=== PATIENT | male | born 1945 | race Caucasian/White ===

== ENCOUNTER → 2016-05-07 | Outpatient (CLI) | payer OTHER | LOC: MMPC 10:00 | PROVIDERS: ATTEND Podiatrist Foot & Ankle Surgery | DX: M79.672 Pain in left foot (principal); L84 Corns and callosities; B35.1 Tinea unguium; L60.0 Ingrowing nail; E11.40 Type 2 diabetes mellitus with diabetic neuropathy, unspecified; L60.3 Nail dystrophy | CPT/HCPCS: 11055 ×2; 11720 ×2; G0463 ==

== ENCOUNTER → 2016-05-18 | Outpatient (CLI) | payer OTHER | LOC: MMPC 11:11 | DX: N20.0 Calculus of kidney (principal); E11.40 Type 2 diabetes mellitus with diabetic neuropathy, unspecified; E29.1 Testicular hypofunction; G47.33 Obstructive sleep apnea (adult) (pediatric); E78.5 Hyperlipidemia, unspecified; E66.3 Overweight | CPT/HCPCS: 99213; G0463 ==

== ENCOUNTER → 2016-05-25 | Outpatient (CLI) | payer OTHER ==
[2016-05-25 13:44] LABS: BASOPHILS # (AUTO) 0.04 10*3/UL; BASOPHILS % (AUTO) 0.4 % (0-1); EOSINOPHILS % (AUTO) 6.2 % (0-8); HEMATOCRIT 36.6 % (42.0-52.0); IMM GRAN % (AUTO) 0.3 % (0-5); IMM GRAN# (AUTO) 0.03 10*3/UL; LYMPHOCYTES # (AUTO) 2.53 10*3/uL; LYMPHOCYTES % (AUTO) 24.2 % (10-50); MEAN CORPUSCULAR HEMOGLOBIN 30.2 PG (27-31); MEAN CORPUSCULAR HGB CONC 32.8 g/dL (33-37); MEAN PLATELET VOLUME 8.5 FL (7.4-12.2); MONOCYTES # (AUTO) 0.86 10*3/UL (0.3-0.8); MONOCYTES % (AUTO) 8.2 % (5-15); NEUTROPHILS # (AUTO) 6.36 10*3/UL; NEUTROPHILS % (AUTO) 60.7 % (50-80); PLATELET MORPHOLOGY COMMENT NORMAL MORPHOLOGY (NORM); RDW COEFFICIENT OF VARIATION 15.8 % (11.5-14.5); RED BLOOD COUNT 3.98 10^6/uL (4.70-6.10); WHITE BLOOD COUNT 10.47 10^3/uL (4.8-10.8)
[2016-05-25 13:54] LABS: BLOOD UREA NITROGEN 39 mg/dL (7-22); BUN/CREATININE RATIO 10.83 (6-20); CHLORIDE 115 meq/L (98-112); CREATININE 3.6 mg/dL (0.70-1.50); GLUCOSE 134 mg/dL (78-110); POTASSIUM 4.1 meq/L (3.8-5.2); SODIUM 146 meq/L (135-145)
== END ==
LOC: LAB 13:27
DX: E11.9 Type 2 diabetes mellitus without complications (principal); I10 Essential (primary) hypertension; N20.0 Calculus of kidney
CPT/HCPCS: 36415; 80048; 85025

== ENCOUNTER → 2016-06-04 | Outpatient (CLI) | payer OTHER | LOC: MMPC 10:00 | PROVIDERS: ATTEND Podiatrist Foot & Ankle Surgery | DX: L84 Corns and callosities (principal); B35.1 Tinea unguium; E11.40 Type 2 diabetes mellitus with diabetic neuropathy, unspecified; I73.9 Peripheral vascular disease, unspecified; L60.0 Ingrowing nail; L60.3 Nail dystrophy | CPT/HCPCS: 11055 ×2; 11720 ×2; G0463 ==

== ENCOUNTER → 2016-06-30 | Outpatient (CLI) | payer OTHER ==
[2016-06-30 16:26] LABS: BLOOD UREA NITROGEN 34 mg/dL (7-22); CALCIUM 9.4 mg/dL (8.7-10.7); CHLORIDE 114 meq/L (98-112); CREATININE 3.3 mg/dL (0.70-1.50); GLUCOSE 88 mg/dL (78-110); MAGNESIUM 2.2 mg/dL (1.6-2.4); PHOSPHORUS 4.7 mg/dl (2.4-4.3); POTASSIUM 4.7 meq/L (3.8-5.2); SODIUM 146 meq/L (135-145); URIC ACID 6.1 mg/dl (3.8-8.5)
== END ==
LOC: MOB LAB 14:30
DX: E11.9 Type 2 diabetes mellitus without complications (principal); N20.0 Calculus of kidney; I10 Essential (primary) hypertension
CPT/HCPCS: 36415; 80048; 83735; 84100; 84550

== ENCOUNTER → 2016-07-02 | Outpatient (CLI) | payer OTHER | LOC: MMPC 10:00 | PROVIDERS: ATTEND Podiatrist Foot & Ankle Surgery | DX: M79.672 Pain in left foot (principal); L84 Corns and callosities; B35.1 Tinea unguium; L60.0 Ingrowing nail; E11.40 Type 2 diabetes mellitus with diabetic neuropathy, unspecified; G62.9 Polyneuropathy, unspecified | CPT/HCPCS: 11055 ×2; 99212; G0463 ==

== ENCOUNTER → 2016-07-30 | Outpatient (CLI) | payer OTHER | LOC: MMPC 10:00 | PROVIDERS: ATTEND Podiatrist Foot & Ankle Surgery | DX: M79.672 Pain in left foot (principal); L84 Corns and callosities; L60.0 Ingrowing nail; B35.1 Tinea unguium; E11.42 Type 2 diabetes mellitus with diabetic polyneuropathy; G62.9 Polyneuropathy, unspecified | CPT/HCPCS: 11055 ×2; G0463 ==

== ENCOUNTER 2016-08-10 07:15 | Emergency (ER) | payer OTHER ==
[2016-08-10] MEDS ORDERED: Sodium Chloride 0.9% 1,000 ML PRIMARY IV ONE (07:50)
[2016-08-10] MEDS ORDERED: NORMAL SALINE 10 ML SYRINGE FLUSH IVP PRN (07:50)
[2016-08-10 08:06] VITALS: RESP 18; TEMP 96.5
[2016-08-10 08:14] LABS: BASOPHILS # (AUTO) 0.03 10*3/UL; BASOPHILS % (AUTO) 0.2 % (0-1); EOSINOPHILS # (AUTO) 0.25 10*3/UL; EOSINOPHILS % (AUTO) 1.6 % (0-8); HEMATOCRIT 43.6 % (42.0-52.0); HEMOGLOBIN 14.3 g/dL (14.0-18.0); LYMPHOCYTES # (AUTO) 0.75 10*3/uL; MEAN CORPUSCULAR HEMOGLOBIN 30.2 PG (27-31); MEAN CORPUSCULAR HGB CONC 32.8 g/dL (33-37); MEAN PLATELET VOLUME 9.8 FL (7.4-12.2); MONOCYTES # (AUTO) 0.76 10*3/UL (0.3-0.8); MONOCYTES % (AUTO) 4.8 % (5-15); NEUTROPHILS # (AUTO) 13.96 10*3/UL; NEUTROPHILS % (AUTO) 88.4 % (50-80); PLATELET MORPHOLOGY COMMENT NORMAL MORPHOLOGY (NORM); RBC MORPHOLOGY COMMENT NORMAL MORPHOLOGY (NORM); RED BLOOD COUNT 4.74 10^6/uL (4.70-6.10); WBC MORPHOLOGY COMMENT NORMAL MORPHOLOGY (NORM)
[2016-08-10] MEDS: HYDROmorphone 2 MG/1 ML IVP ONE ×2 (08:43→10:00)
[2016-08-10 08:49] LABS: BLOOD UREA NITROGEN 45 mg/dL (7-22); BUN/CREATININE RATIO 10.46 (6-20); CALCIUM 8.8 mg/dL (8.7-10.7); LIPASE 74 IU/L (23-300); SERUM ALBUMIN 3.8 g/dL (3.5-4.8)
--- NOTE | 2016-08-10 09:03 | PDOC ---
Transfer of Care - Care Accepted Time Care Transferred: 08:35 Report from Transferring Physician Received: Yes MDM / ED Course: Patient had been evaluated, but had been drawn and sent to the lab for studies transfer of care occurred while awaiting CT scan and results. T of abdomen and pelvis without contrast were ordered. Review of his CT scan shows a proximal 5 mm stone in the right ureter resulting in extravasation of urine and hydronephrosis with a proximal 2 mm stone noted. Creatinine is noted to be elevated over 4. I was able to contact Dr. To the on-call urologist. He is recommending decompression with stent placement and stone retrieval to preserve his one functioning kidney. He has agreed to accept the patient for direct admission at [facility]. Patient is being transferred by private vehicle to [facility]. Home Medications: Home Medications Aspirin [Aspir 81] 1 tab PO DAILY #30 05/06/11 Hydrocodone Bit/Acetaminophen [Roe 5-325 Tablet] 1 tab PO Q4-6H tab 08/31/13 Multivitamin [Daily Vitamin] 1 tab PO DAILY tab 08/31/13 Blood-Glucose Meter [Accu-Chek Raquel Plus] 1 each MC DAILY #1 each 11/28/13 Blood Sugar Diagnostic [Accu-Chek Raquel] 1 strip IN BID PRN #100 strip 12/14/13 Urea 2 gm TP QD #85 tube 06/28/14 Allopurinol 0.5 tab PO QD #45 tab 07/12/14 Metoprolol Tartrate 1.5 tab PO BID #270 tab 07/12/14 Testosterone Cypionate 200 mg IM ONCE #3 vial 07/12/14 Zolpidem Tartrate 1 tab PO HS PRN #90 tab 08/06/14 Glipizide 1 tab PO QD #90 tab 09/25/15 Losartan Potassium 1 tab PO BID #180 tab 01/28/16 Pregabalin [Lyrica] 1 cap PO TID #90 cap 04/02/16 Tamsulosin HCl [Flomax] 0.4 mg PO DAILY #10 cap 04/08/16 Tramadol HCl 1 - 2 tab PO Q4-6H #160 tab 05/14/16 Simvastatin 1 tab PO QHS #90 tab 05/18/16 Nifedipine [Procardia Xl] 1 tab PO BID #180 tab 06/30/16 Sitagliptin Phosphate [Januvia] 0.5 tab PO DAILY #90 tab 02/28/17 Allergies/Adverse Reactions: Allergies latex [Latex] Allergy (Severe, Verified 08/10/16 07:29) RASH PT STATES NO CHANGE IN STATUS . [id number] adhesive [Adhesive] Allergy (Intermediate, Verified 08/10/16 07:29) RASH Vital Signs Reviewed: Yes Nurse's Notes Reviewed & Considered: Yes - Pending Patient Care Items Pending Patient Care Items: POSITIVE: CT / MRI Results - Expected Patient Outcome Tentative Impression of Patient: Nephrolithiasis with hydronephrosis. Expected Disposition: POSITIVE: Home - Re-Evaluation of Patient Re-Examine Time:: 10:16 Disposition of Patient: POSITIVE: Transferred Counseled: POSITIVE: Patient, Family, RE: Lab Results, RE: Radiology Results, RE : DX, RE: Need for F/U Pending Test Results Documented: Yes Clinical Impression Documented: Yes (nephrolithiasis with hydronephrosis) - Results Reviewed Lab Results Reviewed by Me: Yes Lab Results: Laboratory Results 08/10/16 08/10/16 Range/Units 07:54 09:55 WBC 15.79 H (4.8-10.8) 10^3/uL RBC 4.74 (4.70-6.10) 10^6/uL Hgb 14.3 (14.0-18.0) g/dL Hct 43.6 (42.0-52.0) % MCV 92.0 H (80-90) FL MCH 30.2 (27-31) PG MCHC 32.8 L (33-37) g/dL RDW Std Deviation 49.7 (39-50) fL RDW Coeff of Steffi 15.1 H (11.5-14.5) % Plt Count 320 (140-350) 10*3/uL MPV 9.8 (7.4-12.2) FL Immature Gran % (Auto) 0.3 (0-5) % Neut % (Auto) 88.4 H (50-80) % Lymph % (Auto) 4.7 L (10-50) % [place] % (Auto) 4.8 L (5-15) % Eos % (Auto) 1.6 (0-8) % Baso % (Auto) 0.2 (0-1) % Immature Gran # (Auto) 0.04 10*3/UL Neut # (Auto) 13.96 10*3/UL Lymph # (Auto) 0.75 10*3/uL [place] # (Auto) 0.76 (0.3-0.8) 10*3/UL Eos # (Auto) 0.25 10*3/UL Baso # (Auto) 0.03 10*3/UL WBC Morphology Comment Normal morphology (NORM) Plt Morphology Comment Normal morphology (NORM) RBC Morph Comment Normal morphology (NORM) Sodium 143 (135-145) meq/L Potassium 4.6 (3.8-5.2) meq/L Chloride 113 H (98-112) meq/L Carbon Dioxide 16 L (23-33) meq/L Anion Gap 14 (5-20) BUN 45 H (7-22) mg/dL Creatinine 4.3 H (0.70-1.50) mg/dL Estimated GFR Family [employer] BUN/Creatinine Ratio 10.46 (6-20) Glucose 214 H (78-110) mg/dL Calculated Osmolality 313.0 H (267-292) mOsm/kg Calcium 8.8 (8.7-10.7) mg/dL Total Bilirubin 0.5 (0.3-1.2) mg/dL AST 17 L (21-57) IU/L ALT 28 (21-72) IU/L Alkaline Phosphatase 94 (38-126) IU/L Total Protein 7.1 (6.1-8.0) g/dL Albumin 3.8 (3.5-4.8) g/dL Globulin 3.2 (2.50-4.10) g/dL Albumin/Globulin Ratio 1.10 L (1.3-2.0) mg/g Amylase 72 (30-110) U/L Lipase 74 (23-300) IU/L Ur Collection Type Clean catch urine Urine Color Yellow Urine Clarity Clear (CLEAR) Urine pH 5.5 (5.0-8.5) Ur Specific [place] 1.015 (1.005-1.030) Urine Protein >300 (NEG) mg/dl Urine Glucose (UA) 250 (NEG) mg/dL Urine Ketones Negative (NEG) Urine Occult Blood Moderate H (NEG) Urine Nitrate Negative (NEG) Urine Bilirubin Negative (NEG) Urine Urobilinogen 0.2 (0.2) EU/dL Ur Leukocyte Esterase Negative (NEG) Urine RBC 10-12 (NONE) /hpf Urine WBC 0 (NONE) Ur Squamous Epith Cells None (NONE) Ur Renal Epithelial Cell None (NONE) Urine Crystals None Urine Bacteria None (NONE) Urine Casts None (NONE) Urine Mucus None (NONE) Urine Trichomonas None (NONE) Urine Yeast None (NONE) Ur Culture Indicated? Culture not set - Consult Recommendations:: Transfer to [facility] via POV. Direct admission with Dr. To for stent placement and decompression of right hydronephrosis. Patient Care Time - Estimated PCT Patient Care Time (In Minutes): 30 Vital Signs - Recent Vital Signs Vital Signs: Vital Signs (Last 8 hours) Temp Pulse Resp BP Pulse Ox 08/10/16 07:15 96.5 F L 99 18 192/120 95 - VS Reviewed Vital Signs Reviewed: Yes Discharge Clinical Impression: Abdominal pain, Nephrolithiasis Discharge Disposition: Transferred to Tertiary Care Facility Condition: Stable Patient Instructions Given at Discharge: Kidney Stones (ED) Follow Up With: MICKIE ADKINS [Primary Care Provider] - Date Decision to Transfer to Another Facility: 08/10/16 Time Decision to Transfer to Another Facility: 11:01
--- NOTE | 2016-08-10 09:16 | DI ---
CT ABDOMEN SCAN WITHOUT IV CONTRAST, 08/10/2016 7:53 AM : Clinical History: Right flank pain and right lower abdominal pain. Previous Exam: 04/17/2016. Scans are performed from the lower lung bases through the liver and kidneys without IV contrast. Sagi ttal and coronal reformatted images are generated. The lung bases are clear. There are calcified granulomas in the lateral segment of the right middle l obe and in the left lower lobe that have not changed. The liver is normal. The gallbladder is grossly normal. There is no abnormality of the spleen, pancreas, and adrenal glands. The left kidney is smal l and has a 35mm upper pole cyst and a 20 mm lower pole cyst that comprises almost the entire volume of that kidney. There is a small nonobstructing 2-3 mm calculus in a lower pole calyx. The right kidn ey shows perinephric extravasation of urine with mild hydronephrosis secondary to a 5-6 mm calculus i n the proximal ureter probably at the junction between the extrarenal pelvis in the proximal ureter. Within this dilated renal pelvis is a smaller 2-3 mm calculus located proximal to the larger obstruct ing calculus. There are no right renal calculi present. There is a 50 mm as well as a 16 mm cyst in t he upper pole of the right kidney. Both ureters are otherwise normal. There are no abnormal retrocrur al or periaortic nodes. No ascites is present. READIN. Right moderate hydronephrosis with extravasation of urine secondary to a 5-6 mm calculus in the p roximal right ureter. There is a smaller 2-3 mm calculus proximal to this larger calculus. 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 There is a small 2-3 mm nonobstructing lower p ole calculus. 2. The remainder of the examination is normal. CT PELVIS SCAN WITHOUT IV CONTRAST, 08/10/2016 7:53 AM : Clinical History: See above. Previous Exam: 04/17/2016. Scans are performed from the inferior margin of the liver and kidneys to the symphysis pubis without IV contrast. There is no free fluid collection and there is no adenopathy. The appendix is normal. The small bowel , terminal ileum, and ileocecal valve are normal. The colon is also normal. There is a small umbilica l hernia through which only mesenteric fat has herniated. The prostate is enlarged. READING: Normal CT pelvis scan. There is prostatic hypertrophy.
--- NOTE | 2016-08-10 09:18 | PDOC ---
Abdomen/Flank HPI - General Chief Complaint: Abdomen Pain Stated Complaint: ABD PAIN/BURNING TO R SIDE Date Seen by Provider: 08/10/16 Time Seen by Provider: 07:30 Source: POSITIVE: Patient, Spouse Exam Limitations: POSITIVE: No limitations Nurse's Notes Reviewed & Considered: Yes - History of Present Illness Initial Comments: The patient is a 70-year-old male. He states that for the past month he has had some discomfort in the right flank area. He states that last night his right flank pain became severe and he had some associated pain radiating into the right lower abdomen. He states he has a history of ureterolithiasis and had a stone removed from the left ureter on April 25. History of diabetes mellitus. 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 He states he has not had an appendectomy or cholecystectomy. No associated vomiting but some nausea. No diarrhea, melena, hematochezia, hematemesis, dysuria or hematuria. No known fevers. Body Location Affected: REPORTS: Abdomen, Back (Right flank) Timing: REPORTS: Gradual, Getting Worse Duration: >1 week (Some discomfort for the past month; abruptly worse today.) Severity: Moderate Quality: REPORTS: "Pain" Abdominal Pain Onset Location: REPORTS: RLQ, Flank (Right) Abdominal Pain Radiation: REPORTS: No radiation Context: REPORTS: None Modifying Factors: improves with: Nothing Associated Symptoms: REPORTS: Heartburn, Nausea Similar Symptoms Previously: Yes ( "with kidney stones") Recent Care Received: REPORTS: Denies Any Prior Injuries Related to Current Complaint?: Yes - Patient Home Medications Home Medications: Home Medications Aspirin [Aspir 81] 1 tab PO DAILY #30 05/06/11 Hydrocodone Bit/Acetaminophen [Almo 5-325 Tablet] 1 tab PO Q4-6H tab 08/31/13 Multivitamin [Daily Vitamin] 1 tab PO DAILY tab 08/31/13 Blood-Glucose Meter [Accu-Chek Raquel Plus] 1 each MC DAILY #1 each 11/28/13 Blood Sugar Diagnostic [Accu-Chek Raquel] 1 strip IN BID PRN #100 strip 12/14/13 Urea 2 gm TP QD #85 tube 06/28/14 Allopurinol 0.5 tab PO QD #45 tab 07/12/14 Metoprolol Tartrate 1.5 tab PO BID #270 tab 07/12/14 Testosterone Cypionate 200 mg IM ONCE #3 vial 07/12/14 Zolpidem Tartrate 1 tab PO HS PRN #90 tab 08/06/14 Glipizide 1 tab PO QD #90 tab 09/25/15 Losartan Potassium 1 tab PO BID #180 tab 01/28/16 Pregabalin [Lyrica] 1 cap PO TID #90 cap 04/02/16 Tamsulosin HCl [Flomax] 0.4 mg PO DAILY #10 cap 04/08/16 Tramadol HCl 1 - 2 tab PO Q4-6H #160 tab 05/14/16 Simvastatin 1 tab PO QHS #90 tab 05/18/16 Nifedipine [Procardia Xl] 1 tab PO BID #180 tab 06/30/16 Sitagliptin Phosphate [Januvia] 0.5 tab PO DAILY #90 tab 06/30/16 - Patient Allergies Allergies/Adverse Reactions: Allergies Allergy/AdvReac Type Severity Reaction Status Date / Time latex [Latex] Allergy Severe RASH Verified 08/10/16 07:29 adhesive [Adhesive] Allergy Intermediate RASH Verified 08/10/16 07:29 Past Medical History - heen HEENT History: Cataracts, Deaf, Dental Disorders, Chipped or Loose Teeth, Dentures/Partials, Other (please comment) Additional HEENT History: WEARS GLASSES Cardiovascular History: Hypertension, PVD, Hyperlipidemia Additional Cardiovasular History: Peripheral vascular disease. 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 Gastrointestinal History: GI Bleed Genitourinary History: Renal Disease, Kidney Stones Endocrine History: Type 2 Diabetes (oral) Additional Endocrine History: HgbA1c 8.6 on 07/14/12 Musculoskeletal History: Gout, Back Pain, Back Injury, Carpal Tunnel Prosthesis or Implant: No Neurological History: Migraines, Traumatic Brain Injury, Frequent Headaches, Other (please comment) Additional Neurological History: Diabetic peripaheral neuropathy--has burning pain in both legs chronically to below the knees. Blood Disorders: Denies History Psychiatric History: Denies History, PTSD History of Sexually Transmitted Diseases: No Male Reproductive History: Denies History Cancer History: Denies History In Past Year Been Physically Harmed or Verbally Threatened: No (PER PATIENT) History of MDRO: Unknown Type of MDRO: Unknown History of Other Communicable Diseases: No Tobacco Use: Never Smoker Alcohol Use: None Substance Use Type: None Previous Surgical History: Yes Type / Date of Surgery: LITHOTRIPSY x10, TONSILLECTOMY/ADENOIDECTOMY, CHOLECYSTECTOMY, CARPAL TUNNEL REPAIR Anesthesia Reactions: Yes ("have to use double and triple doses") Malignant Hyperthermia: No Family History of Malignant Hyperthermia: No Significant Family History: No pertinent family hx Past Medical History Reviewed: Reviewed - No Changes ROS - Limitations ROS Limitations: No Limitations Constitution: REPORTS: Denies Symptoms Cardiovascular: REPORTS: Denies Cardiac Symptoms Respiratory: REPORTS: Denies Resp Symptoms Neurological: REPORTS: Denies Neuro Symptoms Gastrointestinal: REPORTS: Abdominal Pain Endocrine: REPORTS: Denies Symptoms Musculoskeletal: REPORTS: Denies MS Symptoms Genitourinary: REPORTS: Flank Pain (Right) Eyes: REPORTS: Denies Symptoms ENT: REPORTS: Denies Symptoms Skin: REPORTS: Denies Skin Symptoms Lympathic: REPORTS: Denies Lympathic Symptoms Immunologic: POSITIVE: Denies Symptoms Psychiatric: POSITIVE: Denies Psych Symptoms Abdominal/Flank Pain PE - General Appearance General Appearance: POSITIVE: Alert, Cooperative, No Acute Distress, No Evidence of Trauma - HEENT HEENT: POSITIVE: Head Inspection Nml, Eyes Inspection Nml, Ears Inspection Nml, Nose Inspection Nml, Oral/Dental Inspect. Nml, Pharynx Inspect. Nml, PERRL, EOMI - Neck Neck: POSITIVE: Normal Inspection, No Apparent Injury - Respiratory Respiratory: POSITIVE: No Respiratory Distress, Breath Sounds Normal, Chest Non- Tender - Cardiovascular Cardiovascular: POSITIVE: Regular Rate and Rhythm, Heart Sounds Normal, Equal Pulses, Strong Pulses Peripheral Pulses: Radial (R): 2+, Radial (L): 2+ - Chest Chest: POSITIVE: Non Tender - Abdomen Abdomen: Soft: (All Quadrants), Normal Bowel Sounds: (All Quadrants), Denies Tenderness: (LLQ), (LUQ), (RUQ), No Splenomegaly: (All Quadrants), No Hepatomegaly: (All Quadrants), No Guarding: (All Quadrants), No Rebound: (All Quadrants), No Palpable Pulse: (All Quadrants), No Palpabale Mass: (All Quadrants), No Distention: (All Quadrants), No Rigidity: (All Quadrants), Tenderness Noted: (RLQ) (and right flank, mild) - Back Back: POSITIVE: CVA Tenderness (R) - Skin Skin: POSITIVE: Intact, Normal For Race, Warm, Dry, No Rash - Extremities Extremity: Non-Tender: (All Extremities), Normal ROM: (All Extremities), Normal Inspection: (All Extremities) - Neurological Neurological: POSITIVE: Oriented X3, production internship Normal As Tested, Motor Normal, Sensation Normal, 5, 6 - Psychological Psychiatric: POSITIVE: Affect Appropriate, Mood Appropriate Images - Complete Complete: 1 - Area of discomfort/pain Abdomen Progress - Results Reviewed by me Xrays/CTs/US Reviewed by me: No Discussed with Radiologist: No Radiology Findings: CT scan abdomen and pelvis without contrast ordered; results pending Lab Results Reviewed: No (blood and urine tests ordered; results pending at this time) Lab Results:: Laboratory Results 08/10/16 Range/Units 07:54 WBC 15.79 H (4.8-10.8) 10^3/uL RBC 4.74 (4.70-6.10) 10^6/uL Hgb 14.3 (14.0-18.0) g/dL Hct 43.6 (42.0-52.0) % MCV 92.0 H (80-90) FL MCH 30.2 (27-31) PG MCHC 32.8 L (33-37) g/dL RDW Std Deviation 49.7 (39-50) fL RDW Coeff of Steffi 15.1 H (11.5-14.5) % Plt Count 320 (140-350) 10*3/uL MPV 9.8 (7.4-12.2) FL Immature Gran % (Auto) 0.3 (0-5) % Neut % (Auto) 88.4 H (50-80) % Lymph % (Auto) 4.7 L (10-50) % [place] % (Auto) 4.8 L (5-15) % Eos % (Auto) 1.6 (0-8) % Baso % (Auto) 0.2 (0-1) % Immature Gran # (Auto) 0.04 10*3/UL Neut # (Auto) 13.96 10*3/UL Lymph # (Auto) 0.75 10*3/uL [place] # (Auto) 0.76 (0.3-0.8) 10*3/UL Eos # (Auto) 0.25 10*3/UL Baso # (Auto) 0.03 10*3/UL WBC Morphology Comment Normal morphology (NORM) Plt Morphology Comment Normal morphology (NORM) RBC Morph Comment Normal morphology (NORM) Sodium 143 (135-145) meq/L Potassium 4.6 (3.8-5.2) meq/L Chloride 113 H (98-112) meq/L Carbon Dioxide 16 L (23-33) meq/L Anion Gap 14 (5-20) BUN 45 H (7-22) mg/dL Creatinine 4.3 H (0.70-1.50) mg/dL Estimated GFR [employer] BUN/Creatinine Ratio 10.46 (6-20) Glucose 214 H (78-110) mg/dL Calculated Osmolality 313.0 H (267-292) mOsm/kg Calcium 8.8 (8.7-10.7) mg/dL Total Bilirubin 0.5 (0.3-1.2) mg/dL AST 17 L (21-57) IU/L ALT 28 (21-72) IU/L Alkaline Phosphatase 94 (38-126) IU/L Total Protein 7.1 (6.1-8.0) g/dL Albumin 3.8 (3.5-4.8) g/dL Globulin 3.2 (2.50-4.10) g/dL Albumin/Globulin Ratio 1.10 L (1.3-2.0) mg/g Amylase 72 (30-110) U/L Lipase 74 (23-300) IU/L - Patient's Progress Pain Medication Addressed: POSITIVE: Yes (Dilaudid 2 mg IV ordered) Re-examine Time: 08:35 Re-Examine Comment: Radiologic and laboratory work results pending at this time. Care of patient turned over to Dr. Moses, who comes on duty at 0830 a.m. Status: POSITIVE: Unchanged Patient Care Time - Estimated PCT Patient Care Time (In Minutes): 30 Vital Signs - Recent Vital Signs Vital Signs: Vital Signs (Last 8 hours) Temp Pulse Resp BP Pulse Ox 08/10/16 07:15 96.5 F L 99 18 192/120 95 - VS Reviewed Vital Signs Reviewed: Yes Discharge Clinical Impression: Abdominal pain Condition: Stable Care Transferred To: care transferred to Dr. Moses, [id number]
[2016-08-10 09:26] LABS: BILIRUBIN,URINE NEGATIVE (NEG); COLOR,URINE YELLOW; GLUCOSE, URINE (UA) 250 mg/dL (NEG); NITRATE,URINE NEGATIVE (NEG); OCCULT BLOOD,URINE MODERATE (NEG); PH,URINE 5.5 (5.0-8.5); PROTEIN,URINE >300 mg/dl (NEG); UROBILINOGEN,URINE 0.2 EU/dL (0.2)
[2016-08-10 09:55] LABS: CLARITY,URINE CLEAR (CLEAR)
[2016-08-10 09:56] LABS: URINE SAMPLE TYPE CLEAN CATCH URINE; WBC,URINE 0
[2016-08-10] MEDS ORDERED: CIPROFLOXACIN 500 MG TABLET PO ONE (10:05)
[2016-08-10] MEDS ORDERED: TAMSULOSIN 0.4 MG CAPSULE PO ONE (10:05)
[2016-08-10] MEDS ORDERED: CloNIDine Tab 0.1 MG TABLET PO ONE (11:07)
== END 2016-08-10 11:29 | disposition home or self-care (01) ==
LOC: ER 07:15
DX: N13.2 Hydronephrosis with renal and ureteral calculous obstruction (principal); N40.0 Benign prostatic hyperplasia without lower urinary tract symptoms; R10.31 Right lower quadrant pain; E11.40 Type 2 diabetes mellitus with diabetic neuropathy, unspecified
CPT/HCPCS: 74176; 80053; 81001; 81003; 82150; 83690; 85025; 96361; 96374; 96376; 99283; J1170; J7030

== ENCOUNTER → 2016-08-26 | Outpatient (CLI) | payer OTHER ==
[2016-08-26 15:43] LABS: BASOPHILS # (AUTO) 0.05 10*3/UL; BASOPHILS % (AUTO) 0.4 % (0-1); EOSINOPHILS # (AUTO) 0.39 10*3/UL; EOSINOPHILS % (AUTO) 2.8 % (0-8); HEMATOCRIT 39.8 % (42.0-52.0); LYMPHOCYTES # (AUTO) 1.36 10*3/uL; MEAN CORPUSCULAR HEMOGLOBIN 29.8 PG (27-31); MEAN CORPUSCULAR HGB CONC 32.7 g/dL (33-37); MEAN CORPUSCULAR VOLUME 91.3 FL (80-90); MEAN PLATELET VOLUME 9.4 FL (7.4-12.2); MONOCYTES # (AUTO) 0.61 10*3/UL (0.3-0.8); MONOCYTES % (AUTO) 4.4 % (5-15); NEUTROPHILS # (AUTO) 11.34 10*3/UL; NEUTROPHILS % (AUTO) 82.2 % (50-80); RED BLOOD COUNT 4.36 10^6/uL (4.70-6.10)
[2016-08-26 15:45] LABS: PLATELET MORPHOLOGY COMMENT NORMAL MORPHOLOGY (NORM); RBC MORPHOLOGY COMMENT NORMAL MORPHOLOGY (NORM); WBC MORPHOLOGY COMMENT NORMAL MORPHOLOGY (NORM)
[2016-08-26 15:51] LABS: BLOOD UREA NITROGEN 46 mg/dL (7-22); BUN/CREATININE RATIO 12.43 (6-20); CALCIUM 9.4 mg/dL (8.7-10.7)
[2016-08-26 15:57] LABS: HEMOGLOBIN A1C 6.76 % (4.2-6.0)
== END ==
LOC: MOB LAB 14:14
DX: E11.9 Type 2 diabetes mellitus without complications (principal); D72.829 Elevated white blood cell count, unspecified; N28.9 Disorder of kidney and ureter, unspecified; N20.0 Calculus of kidney
CPT/HCPCS: 36415; 80048; 83036; 85025

== ENCOUNTER → 2016-09-03 | Outpatient (CLI) | payer OTHER | LOC: MMPC 10:00 | PROVIDERS: ATTEND Podiatrist Foot & Ankle Surgery | DX: M79.672 Pain in left foot (principal); L84 Corns and callosities; E11.40 Type 2 diabetes mellitus with diabetic neuropathy, unspecified; G62.9 Polyneuropathy, unspecified; B35.1 Tinea unguium; L60.0 Ingrowing nail | CPT/HCPCS: 11055 ×2; G0463 ==

== ENCOUNTER → 2016-09-11 | Outpatient (CLI) | payer OTHER ==
[2016-09-11 08:14] LABS: BLOOD UREA NITROGEN 27 mg/dL (7-22); CALCIUM 9.4 mg/dL (8.7-10.7)
== END ==
LOC: LAB 07:17
DX: N18.3 Chronic kidney disease, stage 3 (moderate) (principal)
CPT/HCPCS: 36415; 80048

== ENCOUNTER → 2016-09-24 | Outpatient (CLI) | payer OTHER | LOC: MMPC 11:11 | DX: M79.672 Pain in left foot (principal); L84 Corns and callosities; G62.9 Polyneuropathy, unspecified; B35.1 Tinea unguium; L60.0 Ingrowing nail; L60.3 Nail dystrophy; E11.40 Type 2 diabetes mellitus with diabetic neuropathy, unspecified; I67.9 Cerebrovascular disease, unspecified; N28.9 Disorder of kidney and ureter, unspecified; E66.09 Other obesity due to excess calories; I10 Essential (primary) hypertension; N18.3 Chronic kidney disease, stage 3 (moderate); N20.0 Calculus of kidney; E11.9 Type 2 diabetes mellitus without complications; G47.33 Obstructive sleep apnea (adult) (pediatric); F32.9 Major depressive disorder, single episode, unspecified; E78.5 Hyperlipidemia, unspecified; E29.1 Testicular hypofunction | CPT/HCPCS: 11055 ×2; 11720 ×2; 99213; G0463 ×2 ==

== ENCOUNTER 2016-10-02 08:08 | Emergency (ER) | payer OTHER ==
[2016-10-02] MEDS ORDERED: DIPH,PERTUSS,TET(ADACEL) VAC/PF 0.5 ML (Tdap) IM ONE (08:23)
--- NOTE | 2016-10-02 08:27 | PDOC ---
Foot / Ankle Injury - General Chief Complaint: General Medical Stated Complaint: wants his feet checked and needs tetanus shot Date Seen by Provider: 10/02/16 Time Seen by Provider: 08:17 Source: POSITIVE: Patient Exam Limitations: POSITIVE: No limitations Nurse's Notes Reviewed & Considered: Yes - History of Present Illness Initial Comments: The patient is a 70-year-old male who presents to the emergency department with a puncture wound to the left foot. He is a diabetic and has diabetic neuropathy. He states that he got up this morning to go to the bathroom and accidentally stepped on a push pin. He was wearing socks at the time. The push pin stuck in the bottom of his foot. He removed the pin right away. He presented to the emergency department with primary concern about infection and he states he does not remember when his last tetanus shot would've been. He denies any other associated injuries or complaints. Have you received a tetanus shot in the past 10 years?: Yes - Patient Allergies Allergies/Adverse Reactions: Allergies Allergy/AdvReac Type Severity Reaction Status Date / Time latex [Latex] Allergy Severe RASH Unverified 09/24/16 13:33 adhesive [Adhesive] Allergy Intermediate RASH Unverified 09/24/16 13:33 - Patient Home Medications Home Medications: Home Medications Aspirin [Aspir 81] 1 tab PO DAILY #30 05/06/11 Hydrocodone Bit/Acetaminophen [[place] 5-325 Tablet] 1 tab PO Q4-6H tab 08/31/13 Multivitamin [Daily Vitamin] 1 tab PO DAILY tab 08/31/13 Blood-Glucose Meter [Accu-Chek Raquel Plus] 1 each MC DAILY #1 each 11/28/13 Blood Sugar Diagnostic [Accu-Chek Raquel] 1 strip IN BID PRN #100 strip 12/14/13 Urea 2 gm TP QD #85 tube 06/28/14 Allopurinol 0.5 tab PO QD #45 tab 07/12/14 Testosterone Cypionate 200 mg IM ONCE #3 vial 07/12/14 Zolpidem Tartrate 1 tab PO HS PRN #90 tab 08/06/14 Glipizide 1 tab PO QD #90 tab 09/25/15 Tamsulosin HCl [Flomax] 0.4 mg PO DAILY #10 cap 04/08/16 Simvastatin 1 tab PO QHS #90 tab 01/16/17 Nifedipine [Procardia Xl] 1 tab PO BID #180 tab 06/30/16 Sitagliptin Phosphate [Januvia] 0.5 tab PO DAILY #90 tab 06/30/16 Clopidogrel Bisulfate [Plavix] 1 tab PO QD #90 tab 09/08/16 Metoprolol Tartrate 1.5 tab PO BID #270 tab 09/08/16 Potassium Citrate [Potassium Citrate Er] 1 tab PO BID #60 tab 09/24/16 Tramadol HCl 1 - 2 tab PO Q4-6H #160 tab 09/24/16 Cephalexin [Keflex] 500 mg PO Q8H #15 cap 10/02/16 Past Medical History - heen HEENT History: Cataracts, Deaf, Dental Disorders, Chipped or Loose Teeth, Dentures/Partials, Other (please comment) Additional HEENT History: WEARS GLASSES Cardiovascular History: Hypertension, PVD, Hyperlipidemia Additional Cardiovasular History: Peripheral vascular disease. 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 Gastrointestinal History: GI Bleed Genitourinary History: Renal Disease, Kidney Stones Endocrine History: Type 2 Diabetes (oral) Additional Endocrine History: HgbA1c 8.6 on 07/14/12 Musculoskeletal History: Gout, Back Pain, Back Injury, Carpal Tunnel Prosthesis or Implant: No Neurological History: Migraines, Traumatic Brain Injury, Frequent Headaches, Other (please comment) Additional Neurological History: Diabetic peripaheral neuropathy--has burning pain in both legs chronically to below the knees. Blood Disorders: Denies History Psychiatric History: Denies History, PTSD History of Sexually Transmitted Diseases: No Cancer History: Denies History History of MDRO: Unknown History of Other Communicable Diseases: No Alcohol Use: None Substance Use Type: None Previous Surgical History: Yes Type / Date of Surgery: LITHOTRIPSY x10, TONSILLECTOMY/ADENOIDECTOMY, CHOLECYSTECTOMY, CARPAL TUNNEL REPAIR Anesthesia Reactions: Yes ("have to use double and triple doses") Malignant Hyperthermia: No Significant Family History: No pertinent family hx Past Medical History Reviewed: Reviewed - No Changes ROS - Limitations ROS Limitations: No Limitations (Review of systems otherwise noncontributory) Foot / Ankle Exam - General Appearance General Appearance: POSITIVE: Alert, Cooperative, No Acute Distress - Extremities Foot: POSITIVE: Other (examination of the left foot reveals a small puncture on the sole of his foot just proximal to his toes on the lateral aspect of his foot , there is no active bleeding, no foreign body, no soft tissue swelling or tenderness) Foot / Ankle Progress - Patient's Progress MDM / ED Course: The patient's tetanus was updated with Tdap. Wound care instructions were discussed and he was advised to do warm soaks over the next couple of days 2-3 times a day. In addition he was started on Keflex 500 mg 3 times a day for 5 days. He is advised return to the emergency room if he develops any sign of wound infection, any worsening or change in symptoms. He is advised follow-up with primary care as needed. - Consult Counseled: POSITIVE: Patient, RE: DX, RE: Need for F/U Patient Care Time - Estimated PCT Patient Care Time (In Minutes): 10 Vital Signs - VS Reviewed Vital Signs Reviewed: Yes (written documentation reviewed) Discharge Clinical Impression: Puncture wound of foot Discharge Disposition: Discharged to Home Condition: Stable Prescriptions / Orders: Cephalexin [Keflex] 500 mg PO Q8H #15 cap Patient Instructions Given at Discharge: Puncture Wound (ED) Additional Instructions: Recommend warm soaks to the left foot 2-3 times a day for the next couple of days. Monitor closely for any sign of infection (increased pain or swelling, drainage from the wound, redness around the wound, fever). Your tetanus was updated today here in the emergency room. He also her prescribed Keflex 500 mg 3 times a day for 5 days for infection prevention. Return to the emergency room if any sign of infection, worsening or change in symptoms. Follow-up with primary care as needed. Follow Up With: MICKIE ADKINS [Primary Care Provider] -
[2016-10-02 08:43] VITALS: RESP 22; TEMP 97.4
== END 2016-10-02 08:48 | disposition home or self-care (01) ==
LOC: ER 08:08
DX: S91.332A Puncture wound without foreign body, left foot, initial encounter (principal); E11.40 Type 2 diabetes mellitus with diabetic neuropathy, unspecified; W22.8XXA Striking against or struck by other objects, initial encounter
CPT/HCPCS: 90471; 99282

== ENCOUNTER → 2016-10-21 | Outpatient (CLI) | payer OTHER ==
[2016-10-21 10:30] LABS: BLOOD UREA NITROGEN 39 mg/dL (7-22); BUN/CREATININE RATIO 11.47 (6-20); CALCIUM 8.6 mg/dL (8.7-10.7)
== END ==
LOC: LAB 08:39
DX: N28.9 Disorder of kidney and ureter, unspecified (principal)
CPT/HCPCS: 36415; 80048

== ENCOUNTER → 2016-10-22 | Outpatient (CLI) | payer OTHER | LOC: MMPC 10:00 | PROVIDERS: ATTEND Podiatrist Foot & Ankle Surgery | DX: M79.672 Pain in left foot (principal); L84 Corns and callosities; L60.3 Nail dystrophy; L60.0 Ingrowing nail; B35.1 Tinea unguium; E11.40 Type 2 diabetes mellitus with diabetic neuropathy, unspecified | CPT/HCPCS: 11055; 11720 ==

== ENCOUNTER 2016-10-29 20:05 | Emergency (ER) | payer OTHER ==
[2016-10-29 23:40] VITALS: RESP 18; TEMP 98.1
--- NOTE | 2016-10-30 06:18 | PDOC ---
Hand / Wrist Injury HPI - General Chief Complaint: Upper Extremity Problem/Injury Stated Complaint: RIGHT HAND INJURY Date Seen by Provider: 10/29/16 Time Seen by Provider: 20:10 Source: POSITIVE: Patient Exam Limitations: POSITIVE: No limitations Nurse's Notes Reviewed & Considered: Yes - History of Present Illness Initial Comments: The patient is a 70-year-old male. He states that approximately 3 days [employer] he accidentally struck the dorsum of his right and against a wall. He subsequently developed some ecchymosis to the dorsum of his right hand, especially over the dorsum of the right third finger and, less so, the right first and second finger. No paresthesia or sensory or motor symptoms. No lacerations or abrasions. Range of motion has been intact. Have you received a tetanus shot in the past 10 years?: Yes Body Location Affected: REPORTS: Upper Extremity (R) (Hand) Timing: REPORTS: Abrupt Duration: >24 hours (3 days [employer]EN[employer]) Severity: Mild Location at Time of Onset: REPORTS: Home Context: REPORTS: Blow Location of Injury: REPORTS: Right, Hand, 1st Finger, 2nd Finger, 3rd Finger Quality: REPORTS: Tenderness Modifying Factors: REPORTS: Other (Direct palpation) Associated Symptoms: DENIES: Arm (R), Arm (L), Tingling Distally, Numbness Distally, Loss of Feeling, Loss of Power, Other Any Prior Injuries Related to Current Complaint?: No - Patient Home Medications Home Medications: Home Medications Aspirin [Aspir 81] 1 tab PO DAILY #30 05/06/11 Hydrocodone Bit/Acetaminophen [[place] 5-325 Tablet] 1 tab PO Q4-6H tab 08/31/13 Multivitamin [Daily Vitamin] 1 tab PO DAILY tab 08/31/13 Blood-Glucose Meter [Accu-Chek Raquel Plus] 1 each MC DAILY #1 each 11/28/13 Blood Sugar Diagnostic [Accu-Chek Raquel] 1 strip IN BID PRN #100 strip 12/14/13 Urea 2 gm TP QD #85 tube 06/28/14 Allopurinol 0.5 tab PO QD #45 tab 07/12/14 Zolpidem Tartrate 1 tab PO HS PRN #90 tab 08/06/14 Glipizide 1 tab PO QD #90 tab 09/25/15 Nifedipine [Procardia Xl] 1 tab PO BID #180 tab 06/30/16 Sitagliptin Phosphate [Januvia] 0.5 tab PO DAILY #90 tab 06/30/16 Clopidogrel Bisulfate [Plavix] 1 tab PO QD #90 tab 09/08/16 Metoprolol Tartrate 1.5 tab PO BID #270 tab 09/08/16 Potassium Citrate [Potassium Citrate Er] 1 tab PO BID #60 tab 09/24/16 Tramadol HCl 1 - 2 tab PO Q4-6H #160 tab 09/24/16 Simvastatin 1 tab PO QHS #90 tab 10/23/16 - Patient Allergies Allergies/Adverse Reactions: Allergies Allergy/AdvReac Type Severity Reaction Status Date / Time latex [Latex] Allergy Severe RASH Unverified 10/22/16 15:55 adhesive [Adhesive] Allergy Intermediate RASH Unverified 10/22/16 15:55 Past Medical History - heen HEENT History: Cataracts, Deaf, Dental Disorders, Chipped or Loose Teeth, Dentures/Partials, Other (please comment) Additional HEENT History: WEARS GLASSES Cardiovascular History: Hypertension, PVD, Hyperlipidemia Additional Cardiovasular History: Peripheral vascular disease. 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 Gastrointestinal History: GI Bleed Genitourinary History: Renal Disease, Kidney Stones Endocrine History: Type 2 Diabetes (oral) Additional Endocrine History: HgbA1c 8.6 on 07/14/12 Musculoskeletal History: Gout, Back Pain, Back Injury, Carpal Tunnel Prosthesis or Implant: No Neurological History: Migraines, Traumatic Brain Injury, Frequent Headaches, Other (please comment) Additional Neurological History: Diabetic peripaheral neuropathy--has burning pain in both legs chronically to below the knees. Blood Disorders: Denies History Additional Blood Disorders History: MONITORING PATIENT FOR BLOOD CLOTS. RECENTLY PLACED ON PLAVIX AND A HEART MONITOR Psychiatric History: Denies History, PTSD History of Sexually Transmitted Diseases: No Cancer History: Denies History In Past Year Been Physically Harmed or Verbally Threatened: No History of MDRO: Unknown History of Other Communicable Diseases: No Tobacco Use: Never Smoker Alcohol Use: None Substance Use Type: None Previous Surgical History: Yes Type / Date of Surgery: LITHOTRIPSY x10, TONSILLECTOMY/ADENOIDECTOMY, CHOLECYSTECTOMY, CARPAL TUNNEL REPAIR Anesthesia Reactions: Yes ("have to use double and triple doses") Malignant Hyperthermia: No Significant Family History: No pertinent family hx Past Medical History Reviewed: Reviewed - No Changes ROS - Limitations ROS Limitations: No Limitations Constitution: REPORTS: Denies Symptoms Cardiovascular: REPORTS: Denies Cardiac Symptoms Respiratory: REPORTS: Denies Resp Symptoms Neurological: REPORTS: Denies Neuro Symptoms Gastrointestinal: REPORTS: Denies GI Symptoms Endocrine: REPORTS: Denies Symptoms Musculoskeletal: REPORTS: Recent Injury (As above) Genitourinary: REPORTS: Denies Symptoms Eyes: REPORTS: Denies Symptoms ENT: REPORTS: Denies Symptoms Skin: REPORTS: Other (Contusion dorsum of right hand as above; see diagram) Lympathic: REPORTS: Denies Lympathic Symptoms Immunologic: POSITIVE: Denies Symptoms Psychiatric: POSITIVE: Denies Psych Symptoms Hand / Wrist Injury Exam - General Appearance General Appearance: POSITIVE: Alert, Cooperative, No Acute Distress, No Evidence of Trauma - Extremities Upper Extremity: POSITIVE: No Evidence of FB, Normal ROM, Soft Tissue Tenderness (mild), Bony Tenderness (mild), Ecchymosis (see diagram), Uninjured Above Wrist, See Diagram. NEGATIVE: Swelling, Deformity, Complete Nail Injury, Partial Avulsion, Limited ROM, Limited ROM d/t Pain, Ltd. ROM d/t Funct. Def., Snuff Box Position Tender, Axial Thumb Load Pain Neurovascular / Tendon: POSITIVE: Sensation Normal, Motor Normal, No Vascular Compromise, Tendon Function Normal Skin: POSITIVE: See Diagram (contusions) - Neck / Back Neck/Back: POSITIVE: Normal Inspection, Non-Tender, Painless ROM - Respiratory / CVS Respiratory / CVS: POSITIVE: Chest Non Tender, No Ecchymosis, Breath Sounds Normal, No Respiratory Distress, Heart Sounds Normal, Regular Rate/Rhythm Peripheral Pulses: Radial (R): 2+, Radial (L): 2+ Images - Hands Hand: 1 - Contusion 2 - Contusion 3 - Contusion Hand / Wrist Injury Progress - Results Reviewed by me Xrays/CTs/US Reviewed by me: Yes Discussed with Radiologist: No Radiology Findings: X-ray right hand normal - Patient's Progress Pain Medication Addressed: POSITIVE: Yes (recommended Tylenol) School/Work Release Addressed: POSITIVE: Not Applicable Re-Examine Time: 21:00 Status: POSITIVE: Unchanged - Consult Counseled: POSITIVE: Patient, RE: Radiology Results, RE: DX, RE: Need for F/U Patient Care Time - Estimated PCT Patient Care Time (In Minutes): 18 Vital Signs - VS Reviewed Vital Signs Reviewed: Yes Discharge Clinical Impression: Contusion of hand, right Discharge Disposition: Discharged to Home Condition: Good Patient Instructions Given at Discharge: Contusion in Adults (ED) Additional Instructions: X-ray of the right hand is normal; no fractures or dislocations. Cool compresses. Elevate hand. Return as necessary. Follow Up With: MICKIE ADKINS [Primary Care Provider] - (Return as necessary.)
--- NOTE | 2016-10-30 18:27 | DI ---
XR HAND MIN 3VW,10/29/2016 8:17 PM: Clinical History: Trauma Previous Exam: None at this facility. Findings: 3 views of the right hand are obtained, and demonstrate mild diffuse osteopenia. There are dystrophic calcifications noted in the region of the triangular fibrocartilage complex whic h appear to be nonacute. There is diffuse osteopenia. There is no significant diastases. The surrounding soft tissues are unremarkable. Impression: Diffuse osteopenia and degenerative changes of the right wrist. Vague calcified densities in the region of the triangular fibrocartilage complex may represent an old injury. Correlate clinically.
== END 2016-10-29 21:15 | disposition home or self-care (01) ==
LOC: ER 20:05
DX: S60.221A Contusion of right hand, initial encounter (principal); E11.40 Type 2 diabetes mellitus with diabetic neuropathy, unspecified; W22.8XXA Striking against or struck by other objects, initial encounter
CPT/HCPCS: 73130; 99282

== ENCOUNTER → 2016-11-19 | Outpatient (CLI) | payer OTHER | LOC: MMPC 10:00 | PROVIDERS: ATTEND Podiatrist Foot & Ankle Surgery | DX: M79.672 Pain in left foot (principal); L84 Corns and callosities; B35.1 Tinea unguium; L60.0 Ingrowing nail; E11.40 Type 2 diabetes mellitus with diabetic neuropathy, unspecified | CPT/HCPCS: 11055 ×2; G0463 ==

== ENCOUNTER → 2016-12-18 | Outpatient (CLI) | payer OTHER ==
--- NOTE | 2016-12-18 15:46 | DI ---
History: Nephrolithiasis Comparison: August 10, 2016 Findings: There is greater the 1 cm anterolisthesis L5 on S1 Lung bases are clear Unenhanced liver is unremarkable Gallbladder is unremarkable in appearance. Spleen is unremarkable No focal pancreatic lesions. No pancreatic ductal dilatation. Mild aortic atherosclerosis. Large right renal cortical cyst unchanged as compared with August 10, 2016. Pigtail stent extends from right renal pelvis into the urinary bladder. There is punctate calcificati on which I believe is associated with one of the right renal cyst. There are no calculi within the pe lvic calyceal system. I can see no calculi within the ureter. Left kidney is atrophic and unchanged. There is punctate calcific density in the left renal cortex. T here are no obstructing calculi. Left ureter is normal in course and caliber Prostate gland is prominent in impression upon the adjacent urinary bladder. No intrinsic bladder les ions are demonstrated. Fairly large amount of fat is herniated into both right and left inguinal canal. There is no intestinal obstruction. There is no focal inflammation to indicate appendicitis or divert iculitis. There are scattered colonic diverticula, most numerous in the sigmoid colon. There is no fo jeannie inflammation. The appendix is normal. There is no free air or free fluid. Impression: Right ureteral stent extends from the right renal pelvis into the urinary bladder. There is no hydron ephrosis. I can see no renal or ureteral calculi. Atrophy of the left kidney unchanged as compared CT scan of 2017 Greater than 1 cm anterolisthesis of L5 on S1. Bilateral L5 pars interarticularis defects Prostatic hypertrophy with impression upon the adjacent urinary bladder Fairly large amount of fat herniated in the and now Diverticulosis. No indication of diverticulitis
== END ==
LOC: CT 14:41
DX: N20.0 Calculus of kidney (principal)
CPT/HCPCS: 74176

== ENCOUNTER 2018-06-21 05:53 | Observation (INO) ==
[2018-06-21] MEDS ORDERED: Sodium Chloride 0.9% 1,000 ML PRIMARY IV ONE (06:20)
[2018-06-21] MEDS ORDERED: DEXTROSE 50%-WATER SYRINGE 50 ML SYRINGE IVP ONE ×7 (06:22→18:18)
[2018-06-21 06:25] LABS: BASOPHILS # (AUTO) 0.02 10*3/UL; BASOPHILS % (AUTO) 0.2 % (0-1); EOSINOPHILS # (AUTO) 0.05 10*3/UL; EOSINOPHILS % (AUTO) 0.6 % (0-8); Hematocrit [HCT] 37.6 % (42.0-52.0); Hemoglobin [HGB] 11.9 g/dL (14.0-18.0); LYMPHOCYTES # (AUTO) 0.85 10*3/uL; MEAN CORPUSCULAR HEMOGLOBIN 29.5 PG (27-31); MEAN CORPUSCULAR HGB CONC 31.6 g/dL (33-37); MEAN CORPUSCULAR VOLUME 93.3 FL (80-90); MEAN PLATELET VOLUME 9.2 FL (7.4-12.2); MONOCYTES # (AUTO) 0.39 10*3/UL (0.3-0.8); MONOCYTES % (AUTO) 4.4 % (5-15); NEUTROPHILS # (AUTO) 7.51 10*3/UL; NEUTROPHILS % (AUTO) 85.1 % (50-80); RED BLOOD COUNT 4.03 10^6/uL (4.70-6.10)
[2018-06-21 06:36] LABS: BLOOD UREA NITROGEN 49 mg/dL (7-22); BUN/CREATININE RATIO 12.56 (6-20); SERUM ALBUMIN 4.1 g/dL (3.5-4.8)
[2018-06-21 06:47] LABS: PLATELET MORPHOLOGY COMMENT NORMAL MORPHOLOGY (NORM); RBC MORPHOLOGY COMMENT NORMAL MORPHOLOGY (NORM); WBC MORPHOLOGY COMMENT NORMAL MORPHOLOGY (NORM)
--- NOTE | 2018-06-21 06:48 | EKG ---
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
[2018-06-21 07:45] LABS: BILIRUBIN,URINE NEGATIVE (NEG); CLARITY,URINE CLEAR (CLEAR); COLOR,URINE YELLOW (Y); GLUCOSE, URINE (UA) NEGATIVE (NEG); OCCULT BLOOD,URINE Trace-lysed (NEG); PH,URINE 5.5 (5.0-8.5); PROTEIN,URINE >300 mg/dl (NEG); UROBILINOGEN,URINE 0.2 EU/dL (0.2)
[2018-06-21 07:54] LABS: URINE SAMPLE TYPE CLEAN CATCH URINE
[2018-06-21 07:55] LABS: SQUAMOUS EPITHELIAL CELL,UR RARE
--- NOTE | 2018-06-21 08:22 | DI ---
XR CXR 2VW PA/LAT 06/21/2018 7:35 AM [place] [facility] [place] Comparison: 04/19/2018. Findings: PA and lateral views of the chest demonstrate normal aeration without focal consolidation. There is no pneumothorax or pleural effusion. The cardiomediastinal silhouette is at the upper limits of normal with mildly increased pulmonary vasculature. The tortuous thoracic aorta is again noted. T he osseous structures are not significantly changed. Impression: 1. There is no dense consolidation or pleural effusion. 2. Cardiomegaly with mildly increased pulmonary vasculature.
--- NOTE | 2018-06-21 09:01 | PDOC ---
HPI - History of Present Illness Date of Service: 06/21/18 Time of Service: 10:10 Chief Complaint: Low blood sugar, unsteadiness, confusion History of Present Illness: This is a 72 years old male with medical history significant for history of diabetes, hypertension, diabetic nephropathy, hypercholesterolemia and history of previous stroke in the past who was brought to the hospital by his because of low blood sugar. He said his blood sugar started to go down yesterday. In the afternoon his blood sugar was down to 39. At work last night he felt wobbly and at work they called the EMT they came and they checked his blood sugar apparently they gave him some sugars and he ate. Then this morning he felt his blood sugar also to be low and he was brought to the hospital by his . In the ER he was found to have a low blood sugar down to the 20s and 40s he was given D50 and he also ate. Other blood tests showed chronic renal failure which she has in addition troponin was 0.1 this was discussed with the cardiology who suggested a nuclear stress test at one point. To me the patient denied history of chest pain, shortness of breath. When The patient came into the floor the said he has some slurring of his speech however he is not aware of it. He Was denying symptoms. We did check his blood sugar and was 40. We gave him D50 and that's seem to improve his symptoms. He said he can't tell if his blood sugar is his low, the only thing that he had yesterday he said that he was somewhat wobbly and thought he is going to have a fall but he didn't. Past Medical History Medical History: 1. History of diabetes mellitus. 2. History of diabetic nephropathy. 3. History of hypoxemia suppose to be on oxygen at night. 4. History of diabetic neuropathy. 5. History of hypertension. 6. History of hyperlipidemia. 7. History of stroke before he said he recovered from it completely. 8. History of nonfunctioning kidney according to him. 9. History of nephrolithiasis before Surgical History: 1. History of hernia repair. 2. History of carpal tunnel surgery Family History: Reviewed an Not Pertinent Past Social History: Patient have a small, doesn't drink, no drugs, lives with his . Still works. Tobacco Use: Never Smoker In the Past 12 Months, Have Used or Abuse Any of the Following Substance: None Medication / Allergies Home Medications: Home Medications Medication Instructions Recorded Confirmed Type aspirin 81 mg tablet,delayed 81 mg PO QDAY #30 tab 08/11/17 06/21/18 History release blood sugar diagnostic strips 1 strip MISCELLANEOUS BID #100 08/11/17 06/21/18 History strip blood-glucose meter 1 ea MISCELLANEOUS ONCE #1 ea 08/11/17 06/21/18 History multivitamin tablet 1 tab PO QDAY tab 08/11/17 06/21/18 History allopurinol 300 mg tablet 150 mg PO QDAY #45 tab 08/12/17 06/21/18 Rx clopidogrel 75 mg tablet 37.5 mg PO QDAY #45 tab 08/12/17 06/21/18 Rx nifedipine ER 90 mg 90 mg PO BID #60 tab 08/12/17 06/21/18 Rx tablet,extended release 24 hr simvastatin 40 mg tablet 40 mg PO QHS #30 tab 08/12/17 06/21/18 Rx RX: syringe with needle 3 mL 23 x 0 unit .ROUTE .MEDSUPPLY 09/10/17 06/21/18 History 1" RX: Amlodipine Besylate [Norvasc] 2.5 mg PO BID 02/25/18 06/21/18 History potassium citrate ER 5 mEq (540 5 meq PO BID #60 tab 04/19/18 06/21/18 Rx mg) tablet,extended release tramadol 50 mg tablet 50 mg PO Q6H PRN #150 tab 04/21/18 06/21/18 Rx torsemide 20 mg tablet 20 mg PO BID #60 tab 05/04/18 06/21/18 Rx sulfamethoxazole 800 1 tab PO BID #28 tab 05/31/18 06/21/18 Rx mg-trimethoprim 160 mg tablet glipizide ER 10 mg tablet, 10 mg PO DAILY #90 tab 06/10/18 06/21/18 Rx extended release 24 hr losartan 50 mg tablet 25 mg PO QDAY #30 tab 06/10/18 06/21/18 Rx metoprolol tartrate 50 mg tablet 50 mg PO BID #60 tab 06/10/18 Rx Allergies/Adverse Reactions: Allergies Allergy/AdvReac Type Severity Reaction Status Date / Time latex [Latex] Allergy Severe RASH Verified 06/21/18 09:18 adhesive [Adhesive] Allergy Intermediate RASH Verified 06/21/18 09:18 Review of Systems - Review of Systems All Systems: Reviewed & No Additional Complaints Except as Stated Exam - Vitals Vital Signs: Vital Signs Temperature 96.2 F Pulse Rate [Pulse Oximeter] 86 Respiratory Rate 20 Blood Pressure [Left Arm] 178/97 Pulse Ox 94 Oxygen Delivery Method Room Air Height 5 ft 10 in Weight 228 lb 9.6 oz - General General Appearance: No Acute Distress, Cooperative - Head Head Exam: Normal Inspection - Eye Eye Exam: POSITIVE: Normal Appearance - ENT ENT Exam: POSITIVE: Normal Exam - Neck Neck Exam: Normal Inspection - Respiratory Respiratory Exam: POSITIVE: Clear to Auscultation - Bilaterally - Cardiovascular Cardiovascular Exam: POSITIVE: RRR - GI/Abdominal GI/Abdominal Exam: POSITIVE: Normal Bowel Sounds, Non Tender, Non Distended, Soft, No Organomegaly - Rectal Rectal Exam: POSITIVE: Deferred - External Exam: POSITIVE: Deferred Exam: POSITIVE: Deferred - Extremities Extremities Exam: POSITIVE: Normal Inspection - Back Back Exam: POSITIVE: Normal Inspection - Neurological Neurological Exam: POSITIVE: Alert, Oriented x 3, CN II-XII Intact, No Facial Droop, Speech Intact / Clear - Psychiatric Psychiatric Exam: POSITIVE: Normal Affect Results - Labs CBC and BMP: 06/21/18 06:00 06/21/18 08:31 - EKG Data -: EKG Interpreted by Me Rate: Normal EKG Shows Normal: Sinus Rhythm - EKG Data EKG Interpretation: Other (EKG showed right bundle branch block seem to be new compared to the EKG that he had 2016.) Assessment and Plan - Patient Problems (1) Hypoglycemia Current Visit: Yes Status: Acute Comment: He said there is no change in his diet and he did not miss a meal, the only thing is he was put recently on Bactrim and he still taking it only one left according to him. I did check there is a possibility of interaction with the glipizide and may cause hypoglycemia. I think we'll stop the Bactrim. We'll stop the glipizide for now. Will recheck his blood sugar often. His blood sugar when he came into the floor was 40 with gave him D50. I'll put him now on D5 10. Will check his A1c. Code(s): E16.2 - Hypoglycemia, unspecified (2) Troponin level elevated Current Visit: Yes Status: Acute Comment: He is denying chest pain, denying shortness of breath. He is denying history of congestive heart failure although Dr. Bauer mention congestive heart failure. I'll order an echo for him. I did tell him we'll do a stress test but will do it once his blood sugar is stabilized. We'll recheck his tro ponin. I think the elevation is probably secondary to his renal failure. He may have a history of congestive heart failure though an the elevation secondary to CHF. Code(s): R74.8 - Abnormal levels of other serum enzymes (3) Diabetic nephropathy Current Visit: No Status: Chronic Comment: We'll recheck his chemistry tomorrow. (4) Type 2 diabetes with nephropathy Current Visit: No Status: Chronic Comment: We'll hold the glipizide. Will check his blood sugar often because of the hypoglycemia. Code(s): E11.21 - Type 2 diabetes mellitus with diabetic nephropathy (5) Hyperlipidemia Current Visit: No Status: Chronic Comment: Same medication (6) Essential hypertension Current Visit: No Status: Chronic Comment: Continue the same medication. Apparently he ran out on the nifedipine so continue with the medication that he was taking.
--- NOTE | 2018-06-21 09:13 | PDOC ---
General Adult HPI - General Chief Complaint: Diabetic Complaint Stated Complaint: HYPOGLYCEMIA Date Seen by Provider: 06/21/18 Time Seen by Provider: 06:05 Source: POSITIVE: Patient, Spouse, EMS Exam Limitations: POSITIVE: No limitations Nurse's Notes Reviewed & Considered: Yes EMS Report Reviewed & Considered: Verbal - History of Present Illness Initial Comment: The patient is a 72-year-old male who was brought by his to the emergency room. His chief complaint is "my blood sugars have been going". Patient states that he has a history of type II diabetes for which he takes glipizide ER, 10 mg daily. He states he was taken Januvia but he discontinued this medication because "I blood sugars keep getting low ". Patient states that for the last couple of days his blood sugars have been "down to 39". He states his blood sugars "never get above 160. He states his blood sugars are usually "120-110". Patient states that when his blood sugars get slowly gets very fatigued and dizzy. He denies any head chest or abdominal pain. 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 Patient has a history of having had a stroke last year. He states he has complained to his primary care provider, Dr. Isrrael richards, of some vague chest pains for the last 3-4 weeks. He states that Dr. Bauer has arranged for cardiology consultation, which has not yet been accomplished. Patient has a history of chronic renal failure. He in May his BUN was 44 his creatinine was 3.4. He denies any head chest or abdominal pain. No focal neurologic symptoms. On patient's arrival to the emergency room his blood glucose was 40. He is alert and oriented. Have you received a tetanus shot in the past 10 years?: Yes Body Location Affected: REPORTS: Other ("Low blood sugars ") Timing: REPORTS: Intermittent, Getting Worse Duration: >24 hours Quality: REPORTS: Other (Patient denies any pain anywhere) Context: REPORTS: None Modifying Factors: improves with: Nothing Similar Symptoms Previously: Yes Recent Care Received: REPORTS: Recently Seen, Treated by MD (And clinic by professional services specialist) Any Prior Injuries Related to Current Complaint?: No - Patient Home Medications Home Medications: Home Medications aspirin 81 mg tablet,delayed release 81 mg PO QDAY #30 tab 08/11/17 blood sugar diagnostic strips 1 strip MISCELLANEOUS BID #100 strip 08/11/17 blood-glucose meter 1 ea MISCELLANEOUS ONCE #1 ea 08/11/17 multivitamin tablet 1 tab PO QDAY tab 08/11/17 allopurinol 300 mg tablet 150 mg PO QDAY #45 tab 08/12/17 clopidogrel 75 mg tablet 37.5 mg PO QDAY #45 tab 08/12/17 nifedipine ER 90 mg tablet,extended release 24 hr 90 mg PO BID #60 tab 08/12/17 simvastatin 40 mg tablet 40 mg PO QHS #30 tab 08/12/17 syringe with needle 3 mL 23 x 1" 0 unit .ROUTE .MEDSUPPLY 09/10/17 Amlodipine Besylate [Norvasc] 2.5 mg PO BID 02/25/18 potassium citrate ER 5 mEq (540 mg) tablet,extended release 5 meq PO BID #60 tab 04/19/18 tramadol 50 mg tablet 50 mg PO Q6H PRN #150 tab 04/21/18 torsemide 20 mg tablet 20 mg PO BID #60 tab 05/04/18 sulfamethoxazole 800 mg-trimethoprim 160 mg tablet 1 tab PO BID #28 tab 05/31/18 glipizide ER 10 mg tablet, extended release 24 hr 10 mg PO DAILY #90 tab 9 losartan 50 mg tablet 25 mg PO QDAY #30 tab 06/10/18 metoprolol tartrate 50 mg tablet 50 mg PO BID #60 tab 06/10/18 - Patient Allergies Allergies/Adverse Reactions: Allergies Allergy/AdvReac Type Severity Reaction Status Date / Time latex [Latex] Allergy Severe RASH Verified 06/21/18 05:54 adhesive [Adhesive] Allergy Intermediate RASH Verified 06/21/18 05:54 Past Medical History - heen HEENT History: Cataracts, Hard of Hearing, Chipped or Loose Teeth Additional HEENT History: WEARS GLASSES Cardiovascular History: Hypertension, PVD, Hyperlipidemia Additional Cardiovasular History: Peripheral vascular disease. 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 Gastrointestinal History: Denies History Genitourinary History: Renal Disease, Kidney Stones Additional Genitourinary History: Only has one kidney Endocrine History: Type 2 Diabetes (oral) Additional Endocrine History: HgbA1c 8.6 on 07/14/12 Musculoskeletal History: Gout Prosthesis or Implant: No Neurological History: CVA, Frequent Headaches, Other (please comment) Additional Neurological History: Diabetic peripheral neuropathy Blood Disorders: Denies History Additional Blood Disorders History: MONITORING PATIENT FOR BLOOD CLOTS. RECENTLY PLACED ON PLAVIX AND A HEART MONITOR Psychiatric History: Denies History History of Sexually Transmitted Diseases: No Male Reproductive History: Denies History Cancer History: Denies History In Past Year Been Physically Harmed or Verbally Threatened: No History of MDRO: Unknown Other Type of MDRO: Hx of MRSA History of Other Communicable Diseases: No Tobacco Use: Never Smoker Alcohol Use: None In the Past 12 Months, Have Used or Abuse Any Substance: None Previous Surgical History: Yes Type / Date of Surgery: LITHOTRIPSY x10, TONSILLECTOMY/ADENOIDECTOMY, CHOLECYSTECTOMY, CARPAL TUNNEL REPAIR/Bronchoscopy Anesthesia Reactions: No Malignant Hyperthermia: No Significant Family History: Cancer, Diabetes Past Medical History Reviewed: Reviewed - No Changes ROS - Limitations ROS Limitations: No Limitations Constitution: REPORTS: Denies Symptoms Cardiovascular: REPORTS: Denies Cardiac Symptoms Respiratory: REPORTS: Denies Resp Symptoms Neurological: REPORTS: Denies Neuro Symptoms Gastrointestinal: REPORTS: Denies GI Symptoms Endocrine: REPORTS: Low Glucose Musculoskeletal: REPORTS: Denies MS Symptoms Genitourinary: REPORTS: Denies Symptoms Eyes: REPORTS: Denies Symptoms ENT: REPORTS: Denies Symptoms Skin: REPORTS: Denies Skin Symptoms Lympathic: REPORTS: Denies Lympathic Symptoms Immunologic: POSITIVE: Denies Symptoms Psychiatric: POSITIVE: Denies Psych Symptoms General Adult Exam - General Appearance General Appearance: POSITIVE: Alert, Cooperative, No Acute Distress, No Evidence of Trauma - HEENT HEENT: POSITIVE: Head Inspection Nml, Eyes Inspection Nml, Ears Inspection Nml, Nose Inspection Nml, Oral/Dental Inspect. Nml, Pharynx Inspect. Nml, PERRL, EOMI - Pupils Pupil Size: 3 mm: Bilateral (PERRLA) - Neck Neck: POSITIVE: Normal Inspection, Thyroid Normal - Respiratory Respiratory: POSITIVE: No Respiratory Distress, Breath Sounds Normal, Chest Non- Tender - Cardiovascular Cardiovascular: POSITIVE: Regular Rate & Rhythm, No Murmur, No Gallop, PMI Normal Peripheral Pulses: Radial (R): 2+, Radial (L): 2+ - Abdomen Abdomen: Soft: (All Quadrants), Normal Bowel Sounds: (All Quadrants), Denies Tenderness: (All Quadrants), No Splenomegaly: (All Quadrants), No Hepatomegaly: (All Quadrants), No Guarding: (All Quadrants), No Rebound: (All Quadrants), No Palpable Pulse: (All Quadrants), No Palpabale Mass: (All Quadrants), No Distention: (All Quadrants), No Rigidity: (All Quadrants) - Back Back: POSITIVE: Normal Inspection. NEGATIVE: CVA Tenderness, Thoracic Tenderness, Lumbosacral Tenderness - Skin Skin: POSITIVE: Normal Color, Warm, Dry, No Rash - Extremities Extremity: Non-Tender: (All Extremities), Normal ROM: (All Extremities), Normal Inspection: (All Extremities) - Neurological / Psychological Neurological: POSITIVE: Affect Apporpriate, Oriented X3, service delivery consultant Normal As Tested, Motor Normal, Sensation Normal General Adult Progress - Results Reviewed by me Xrays/CTs/US Reviewed by me: Yes Discussed with Radiologist: Yes Radiology Findings: Chest x-ray shows cardiomegaly with mildly increased pul monary vasculature. Lab Results:: Laboratory Results 06/21/18 06/21/18 06/21/18 06:00 06:00 06:00 WBC 8.83 RBC 4.03 L Hgb 11.9 L Hct 37.6 L MCV 93.3 H MCH 29.5 MCHC 31.6 L RDW Std Deviation 53.4 H RDW Coeff of Steffi 16.1 H Plt Count 331 MPV 9.2 Immature Gran % (Auto) 0.1 Neut % (Auto) 85.1 H Lymph % (Auto) 9.6 L [place] % (Auto) 4.4 L Eos % (Auto) 0.6 Baso % (Auto) 0.2 Immature Gran # (Auto) 0.01 Neut # (Auto) 7.51 Lymph # (Auto) 0.85 [place] # (Auto) 0.39 Eos # (Auto) 0.05 Baso # (Auto) 0.02 WBC Morphology Comment Normal morphology Plt Morphology Comment Normal morphology RBC Morph Comment Normal morphology PT INR APTT Sodium 147 H Potassium 3.6 L Chloride 118 H Carbon Dioxide 14 L Anion Gap 15 BUN 49 H Creatinine 3.9 H Estimated GFR Steel Fixer BUN/Creatinine Ratio 12.56 Glucose 26 L* Calculated Osmolality 312.0 H Lactic Acid 1.0 Calcium 9.3 Total Bilirubin 0.2 L AST 101 H ALT 73 H Alkaline Phosphatase 85 Troponin I C-Reactive Protein 0.9 NT-Pro-B Natriuret Pep Total Protein 7.0 Albumin 4.1 Globulin 2.9 Albumin/Globulin Ratio 1.40 TSH Free T4 Ur Collection Type Urine Color Urine Clarity Urine pH Ur Specific [place] Urine Protein Urine Glucose (UA) Urine Ketones Urine Occult Blood Urine Nitrate Urine Bilirubin Urine Urobilinogen Ur Leukocyte Esterase Urine RBC Urine WBC Ur Squamous Epith Cells Ur Renal Epithelial Cell Urine Crystals Urine Bacteria Urine Casts Urine Mucus Urine Trichomonas Urine Yeast Ur Culture Indicated? 06/21/18 06/21/18 06/21/18 06:00 06:00 06:00 WBC RBC Hgb Hct MCV MCH MCHC RDW Std Deviation RDW Coeff of Steffi Plt Count MPV Immature Gran % (Auto) Neut % (Auto) Lymph % (Auto) [place] % (Auto) Eos % (Auto) Baso % (Auto) Immature Gran # (Auto) Neut # (Auto) Lymph # (Auto) [place] # (Auto) Eos # (Auto) Baso # (Auto) WBC Morphology Comment Plt Morphology Comment RBC Morph Comment PT 10.6 INR 1.04 APTT 31.3 Sodium Potassium Chloride Carbon Dioxide Anion Gap BUN Creatinine Estimated GFR BUN/Creatinine Ratio Glucose Calculated Osmolality Lactic Acid Calcium Total Bilirubin AST ALT Alkaline Phosphatase Troponin I 0.108 H C-Reactive Protein NT-Pro-B Natriuret Pep Total Protein Albumin Globulin Albumin/Globulin Ratio TSH 0.167 L Free T4 0.84 L Ur Collection Type Urine Color Urine Clarity Urine pH Ur Specific [place] Urine Protein Urine Glucose (UA) Urine Ketones Urine Occult Blood Urine Nitrate Urine Bilirubin Urine Urobilinogen Ur Leukocyte Esterase Urine RBC Urine WBC Ur Squamous Epith Cells Ur Renal Epithelial Cell Urine Crystals Urine Bacteria Urine Casts Urine Mucus Urine Trichomonas Urine Yeast Ur Culture Indicated? 06/21/18 06/21/18 06/21/18 06:00 07:05 07:30 WBC RBC Hgb Hct MCV MCH MCHC RDW Std Deviation RDW Coeff of Steffi Plt Count MPV Immature Gran % (Auto) Neut % (Auto) Lymph % (Auto) [place] % (Auto) Eos % (Auto) Baso % (Auto) Immature Gran # (Auto) Neut # (Auto) Lymph # (Auto) [place] # (Auto) Eos # (Auto) Baso # (Auto) WBC Morphology Comment Plt Morphology Comment RBC Morph Comment PT INR APTT Sodium Potassium Chloride Carbon Dioxide Anion Gap BUN Creatinine Estimated GFR BUN/Creatinine Ratio Glucose 40 L* Calculated Osmolality Lactic Acid Calcium Total Bilirubin AST ALT Alkaline Phosphatase Troponin I C-Reactive Protein NT-Pro-B Natriuret Pep 82179 H Total Protein Albumin Globulin Albumin/Globulin Ratio TSH Free T4 Ur Collection Type Clean catch urine Urine Color Yellow Urine Clarity Clear Urine pH 5.5 Ur Specific [place] 1.020 Urine Protein >300 A Urine Glucose (UA) Negative Urine Ketones Negative Urine Occult Blood Trace-lysed H Urine Nitrate Negative Urine Bilirubin Negative Urine Urobilinogen 0.2 Ur Leukocyte Esterase Negative Urine RBC None Urine WBC None Ur Squamous Epith Cells Rare Ur Renal Epithelial Cell None Urine Crystals None Urine Bacteria None Urine Casts None Urine Mucus None Urine Trichomonas None Urine Yeast None Ur Culture Indicated? Culture not set CBC and BMP: 06/21/18 06:00 06/21/18 07:05 EKG Interpreted/Reviewed By Me:: Yes (Q waves V1 through V3 with right bundle branch block. Q waves are new deve) EKG Interpretation:: POSITIVE: Normal Sinus Rhythm, Normal Rate, Abnormal EKG. NEGATIVE: Normal Intervals (Right bundle-branch block), Normal [place], Normal QRS (Q waves V1 through V3), Normal ST/T - Patient's Progress Pain Medication Addressed: POSITIVE: Not Applicable School/Work Release Addressed: POSITIVE: Not Applicable Re-Examine Time: 07:45 Re-Examine Comment: was made of the patient's elevated troponin. case was discussed with dr. richard, cardiology at [facility] [place]. patient has no chest pain at this time. dr. richard advises that his elevated troponin is most likely due to his renal failure. furthermore, in view of his renal failure patient is not a candidate for coronary angiography. .Dr Richard did not recommend heparinization. Recommended admission and a nuclear stress test. Patient was given a half a half of D50 and was fed breakfast. He feels much better on discharge. Status: POSITIVE: Improved, Re-Examined Antibiotics Given: No Quality Measure Initiative: CP/AMI: POSITIVE: EKG - Consult Consult (If Yes, Name of Consulting MD & Time Called): Yes (Dr. richard, [id number] Grady [phone]) Consulting MD will see pt:: POSITIVE: [facility] Admit Counseled: POSITIVE: Patient, Family, RE: Lab Results, RE: Radiology Results, RE: DX, RE: Need for F/U Patient Care Time - Estimated PCT Patient Care Time (In Minutes): 60 Vital Signs - Recent Vital Signs Vital Signs: Vital Signs (Last 8 hours) Temp Pulse Resp BP Pulse Ox 06/21/18 05:53 96.2 F L 86 20 178/97 94 - VS Reviewed Vital Signs Reviewed: Yes Discharge Clinical Impression: Hypoglycemia, Renal failure, chronic, Troponin level elevated CHF (congestive heart failure) Qualifiers: Heart failure type: unspecified Heart failure chronicity: acute on chronic Qualified Code(s): I50.9 - Heart failure, unspecified Discharge Disposition: Admit to Inpatient Condition: Good Date Decision to Admit to Inpatient: 06/21/18 Time Decision to Admit to Inpatient: 08:00
[2018-06-21] MEDS ORDERED: D10W 250 ML PRIMARY IV ONE ×2 (09:58→15:30)
[2018-06-21] MEDS ORDERED: LIDOCAINE W/ SODIUM BICARB 0.5 ML SYR SUBD PRN (10:03)
[2018-06-21] MEDS ORDERED: ONDANSETRON 4 MG/2 ML VIAL IVP PRN (10:03)
[2018-06-21] MEDS ORDERED: CALCIUM CARBONATE 500 MG (TUMS) CHEWABLE TABLET PO PRN (10:03)
[2018-06-21] MEDS ORDERED: ACETAMINOPHEN 325 MG TABLET PO PRN (10:03)
[2018-06-21] MEDS: Metoprolol TARTRATE Tab 50 MG TAB PO SCH ×2 (10:43→20:39)
[2018-06-21] MEDS: ALLOPURINOL 300 MG TABLET PO SCH (10:43)
[2018-06-21] MEDS: AmLODIPine Tab 2.5 MG TABLET PO SCH ×2 (11:25→20:38)
[2018-06-21] MEDS ORDERED: OCTREOTIDE ACETATE 50 MCG/1 ML VIAL OR AMP IVP SCH (18:15)
[2018-06-21 18:32] LABS: BLOOD UREA NITROGEN 46 mg/dL (7-22); BUN/CREATININE RATIO 12.77 (6-20)
[2018-06-21] MEDS: SODIUM CHLORIDE 0.9% IV SCH (19:04)
[2018-06-21] MEDS: OCTREOTIDE ACETATE IV SCH (19:04)
[2018-06-21] MEDS: Simvastatin Tab 40 MG TAB PO SCH (20:38)
[2018-06-21] MEDS: LOSARTAN 25 MG TABLET PO SCH (20:39)
[2018-06-21] MEDS: CLOPIDOGREL 75 MG TABLET PO SCH (20:39)
[2018-06-21] MEDS: ASPIRIN EC 81 MG TABLET PO SCH (20:39)
[2018-06-21] MEDS ORDERED: LOSARTAN 50 MG TABLET PO SCH (21:00)
[2018-06-21] MEDS: D10W 250 ML PRIMARY IV SCH (21:31)
[2018-06-22] MEDS: OCTREOTIDE ACETATE IV SCH ×2 (02:31→11:36)
[2018-06-22] MEDS: SODIUM CHLORIDE 0.9% IV SCH ×2 (02:31→11:36)
[2018-06-22] MEDS: D10W 250 ML PRIMARY IV SCH ×2 (02:32→07:29)
[2018-06-22 05:41] LABS: BLOOD UREA NITROGEN 45 mg/dL (7-22); BUN/CREATININE RATIO 13.23 (6-20)
--- NOTE | 2018-06-22 07:16 | PDOC(PROG) ---
Date of Service: 06/22/18 Time of Service: 07:15 Interval History: Subjective Patient continued to deny symptoms. He is denying any symptoms today, no shortness of breath, no chest pain. Still saying that he didn't have any symptoms yesterday when his blood sugar was low. Objective : Data - Labs CBC and BMP: 06/21/18 06:00 06/22/18 04:45 Objective : Exam - General General Appearance: No Acute Distress, Cooperative - Head Head Exam: Normal Inspection - Eye Eye Exam: Normal Appearance - ENT ENT Exam: Normal Exam - Neck Neck Exam: Normal Inspection - Respiratory Respiratory Exam: Clear to Auscultation - Bilaterally - Cardiovascular Cardiovascular Exam: RRR - GI/Abdominal GI/Abdominal Exam: Normal Bowel Sounds, Non Tender, Non Distended, Soft, No Organomegaly - Rectal Rectal Exam: Deferred - External Exam: Deferred Exam: Deferred - Extremities Extremities Exam: Normal Inspection - Back Back Exam: Normal Inspection - Neurological Neurological Exam: Alert, Oriented x 3, CN II-XII Intact, No Facial Droop, Speech Intact / Clear, Moves All Extremities Equally - Psychiatric Psychiatric Exam: Normal Affect Assessment and Plan - Patient Problems (1) Hypoglycemia Current Visit: Yes Status: Acute Comment: Seems to be resolving, will start cutting back on the IV fluids. will See whether we can stop it today. If we can will order the stress test for tomorrow. We'll give him 1 more dosage of the octreotide and then will DC it. Code(s): E16.2 - Hypoglycemia, unspecified (2) Troponin level elevated Current Visit: Yes Status: Acute Comment: As I said if his blood sugar remained stable off the IV fluid then will stress test for tomorrow. I did order an echocardiogram for him today. Code(s): R74.8 - Abnormal levels of other serum enzymes (3) Diabetic nephropathy Current Visit: No Status: Chronic Comment: Kidney function remains stable. (4) Type 2 diabetes with nephropathy Current Visit: No Status: Chronic Comment: We DC'd the glipizide will keep him off the glipizide will keep an eye on his blood sugar. Code(s): E11.21 - Type 2 diabetes mellitus with diabetic nephropathy (5) Hyperlipidemia Current Visit: No Status: Chronic Comment: Same med (6) Essential hypertension Current Visit: No Status: Chronic Comment: Same med
[2018-06-22] MEDS: Metoprolol TARTRATE Tab 50 MG TAB PO SCH ×2 (08:53→20:37)
[2018-06-22] MEDS: ASPIRIN EC 81 MG TABLET PO SCH (08:53)
[2018-06-22] MEDS: AmLODIPine Tab 2.5 MG TABLET PO SCH ×3 (08:53→20:27)
[2018-06-22] MEDS: ALLOPURINOL 300 MG TABLET PO SCH (08:53)
[2018-06-22] MEDS: LOSARTAN 25 MG TABLET PO SCH ×2 (19:12→20:27)
[2018-06-22] MEDS: Simvastatin Tab 40 MG TAB PO SCH (20:37)
[2018-06-22] MEDS: CLOPIDOGREL 75 MG TABLET PO SCH (20:38)
[2018-06-23 05:26] LABS: BLOOD UREA NITROGEN 47 mg/dL (7-22); BUN/CREATININE RATIO 11.75 (6-20)
--- NOTE | 2018-06-23 09:06 | STRESSTEST ---
[facility] [place] Interpretive Statements Patient had lexiscan stress test per protocol baseline BP was 158/92, heart rate was 79, baseline EKG showed RBBB with left axis deviation, post injection patient did have some nausea but that resolved in the recovery phase, maximum BP was 162/98, maximum heart rate was 98, No new EKG changes noted. , Conclusion No new EKG changes on the EKg part of lexiscan stress test await nuclear scan results. [email or web address]
[2018-06-23] MEDS ORDERED: NIFEdipine 30 MG ER 24H TABLET PO SCH ×2 (09:30)
[2018-06-23] MEDS: Metoprolol TARTRATE Tab 50 MG TAB PO SCH (09:42)
[2018-06-23] MEDS: ASPIRIN EC 81 MG TABLET PO SCH (09:42)
[2018-06-23] MEDS: ALLOPURINOL 300 MG TABLET PO SCH (09:42)
[2018-06-23] MEDS: AmLODIPine Tab 2.5 MG TABLET PO SCH (09:43)
[2018-06-23 11:59] VITALS: RESP 28; TEMP 98.3; O2SAT 97
--- NOTE | 2018-06-23 13:28 | DI ---
2 DAY LEXISCAN STRESS & REST MYOCARDIAL PERFUSION SCANS, 06/22/2018 12:11 PM : Clinical History: Elevated troponins. Previous Exam: None at this facility. The patient was stressed by Dr. Kaitlyn Grady The standard Lexiscan protocol was used. Please see the Doctor's report. At the designated time, 37.6 mCi of 99Tc-sestimibi was injected IV. Stress gated tomograms were acquired within one hour of the i njection. For the resting scans, 37.6 mCi was injected IV and resting gated tomograms were acquired in similar fashion. Stress scans were performed on June 23, 2018; the resting scans were performed on June 22. Quantitative and qualitative analyses were performed. Quantitative analysis was performed with the [place] [id number] protocols. Very low dose limited CT scans of the chest are o btained through the level of the heart for attenuation correction of the gated stress and rest cardia c SPECT data. Non-attenuated and attenuated scans were processed for review, and the attenuated scans were used for final interpretation of this study. Review of the raw data images and water quality tester files indicate that these series of examinations ar e of good quality. There is some gut crosstalk noted on both stress and rest images. Stress and rest left ventricular chamber sizes are normal. Stress and rest LVEF are 32 % and 38 %, r espectively. There is a large predominantly fixed defect involving the anterior apex with some mild to moderate r eversibility near the anterior apex. There is diffuse hypokinesis and decreased ejection fraction. The sum difference score measured a tot al of 3. Transient ischemic dilatation ratio is 1.11, with a normal range up to 1.22 for patients str essed with the Jason protocol and up to 1.33 for patients stressed with the Lexiscan protocol. The very low dose CT scans through the level of the heart show no coronary artery calcifications. The re are no lung nodules. There is a small right pleural effusion. Reading: Large predominantly fixed defect within the anterior apex. There is a medium-sized area of reversibil ity near the cardiac apex anterolaterally consistent with ischemia. Diffuse hypokinesis with decreased ejection fraction (38%). Small right pleural effusion.
--- NOTE | 2018-06-23 14:48 | DCSUMMARY ---
Hospitalization Summary Admit Date: 06/21/2018 Discharge Date: 06/23/18 Hospital Course: Discharge diagnoses 1. Severe hypoglycemia possibly secondary to drug interaction between glipizide and Bactrim 2. Large predominantly fixed defect within the anterior apex. There is a medium-sized area of reversibility near the cardiac apex Anterolaterally consistent with ischemia. Patient will follow-up with cardiology 3. Diffuse hypokinesis with decreased ejection fraction 38% 4. Chronic renal failure 5. Diabetic nephropathy 6. History of diabetes 7. History of hypoxemia supposed to be on oxygen at night 8. History of diabetic neuropathy 9. History of hypertension 10. History of hyperlipidemia 11. History of stroke 12. History of nonfunctioning kidney according to him 13. History of nephrolithiasis Hospital course This is a 72 years old male with medical history significant for history of diabetes, hypertension, diabetic nephropathy, hypercholesterolemia and history of previous stroke in the past who was brought to the hospital by his because of low blood sugar. He said his blood sugar started to go down the day before admission. In the afternoon his blood sugar was down to 39. At work the night before admission he felt wobbly and they called the EMT they came and checked on him, his blood sugar was low and they gave him some sugar and he ate. The morning of admission blood sugar was again low and brought him to the hospital. In the ER he was found to have low blood sugar down to the 20s and 40s and he was given D50 and he also ate. Other tests showed renal failure which is chronic in addition he had troponin of 0.1 this was discussed with cardiology who suggested a nuclear stress test. Patient when I saw him denied chest pain and denied shortness of breath. However his blood sugar was low in the 40s who had to give him multiple D50's in addition to D10 infusion. We also had to give him octreotide boluses to reverse the effect of the glipizide. Later on we were able to control his blood sugar then we were able to do a stress test. The stress test did show large predominantly fixed defect within the anterior apex. There is a medium-sized area of reversible ischemia in the cardiac apex anterolaterally consistent with ischemia. His ejection fraction was over 38%. I did discuss that with Dr. herrera the casino runner. Because of his the kidney function he suggested medical treatment. Dr. herrera also said that if they Cath him he will end up on dialysis and I did explain that to the patient and he didn't want that. The casino runner said that his office will call him for an appointment. His kidney function when he came in was 3.9 creatinine and on discharge was 4. I think it's very close to his baseline. I did order a repeat chemistry next week to ensure level remain at baseline. Will get him also appointment with nep hrology. I did explain to the patient that because of his kidney function if they do an angiogram He will end up to be on dialysis and he is against that. So we'll continue with medical treatment. He is on Plavix, aspirin, losartan, metoprolol and simvastatin. He ran out on his nifedipine so I wrote a prescription for nifedipine. Regarding the diabetes will DC the glipizide and we'll try him on the Januvia only. I did tell him to write his blood sugars numbers and follow- up with Dr. Bauer and see if he needs adjustment to the dosage. Laboratory Results 06/23/18 04:40 Sodium 145 Potassium 4.4 Chloride 121 H Carbon Dioxide 13 L Anion Gap 11 BUN 47 H Creatinine 4.0 H Estimated GFR Extract Operator BUN/Creatinine Ratio 11.75 Glucose 196 H Calculated Osmolality 316.0 H Calcium 9.1 Discharge instruction Diet regular Activity as started Medications Current Medication(s) Medication Instructions Recorded Confirmed Type aspirin 81 mg tablet,delayed 81 mg PO QDAY #30 tab 08/11/17 06/21/18 History release blood sugar diagnostic strips 1 strip MISCELLANEOUS BID #100 08/11/17 06/21/18 H istory strip blood-glucose meter 1 ea MISCELLANEOUS ONCE #1 ea 08/11/17 06/21/18 History multivitamin tablet 1 tab PO QDAY tab 08/11/17 06/21/18 History allopurinol 300 mg tablet 150 mg PO QDAY #45 tab 08/12/17 06/21/18 Rx clopidogrel 75 mg tablet 37.5 mg PO QDAY #45 tab 08/12/17 06/21/18 Rx simvastatin 40 mg tablet 40 mg PO QHS #30 tab 08/12/17 06/21/18 Rx syringe with needle 3 mL 23 x 1" 0 unit .ROUTE .MEDSUPPLY 09/10/17 06/21/18 History Amlodipine Besylate [Norvasc] 2.5 mg PO BID 02/25/18 06/21/18 History tramadol 50 mg tablet 50 mg PO Q6H PRN #150 tab 04/21/18 06/21/18 Rx torsemide 20 mg tablet 20 mg PO BID #60 tab 05/04/18 06/21/18 Rx losartan 50 mg tablet 25 mg PO QDAY #30 tab 06/10/18 06/21/18 Rx metoprolol tartrate 50 mg tablet 50 mg PO BID #60 tab 06/10/18 06/21/18 Rx Nifedipine [Procardia Xl] 90 mg PO BID #60 tab 06/23/18 Rx Sitagliptin Phosphate [Januvia] 50 mg PO DAILY #60 tablet 06/23/18 Rx Follow-up with PCP 1-2 weeks, follow-up with Dr. Sewell as scheduled, follow-up with cardiology Dr. herrera office will call him for an appointment Condition at discharge was stable for discharge Exam - Vitals Vital Signs: Vital Signs Temperature 98.3 F Temperature Source Temporal Artery Scan Pulse Rate [Pulse Oximeter] 94 Pulse Rate 95 Respiratory Rate 28 Blood Pressure [Right Arm] 166/92 Blood Pressure [Left Arm] 195/108 Blood Pressure 162/88 Pulse Ox 97 Oxygen Delivery Method Room Air Height 5 ft 10 in Weight 226 lb 9.6 oz - General General Appearance: No Acute Distress, Cooperative - Head Head Exam: Normal Inspection - Eye Eye Exam: POSITIVE: Normal Appearance - ENT ENT Exam: POSITIVE: Normal Exam - Neck Neck Exam: Normal Inspection - Respiratory Respiratory Exam: POSITIVE: Clear to Auscultation - Bilaterally - Cardiovascular Cardiovascular Exam: POSITIVE: RRR - GI/Abdominal GI/Abdominal Exam: POSITIVE: Normal Bowel Sounds, Non Tender, Non Distended, Soft, No Organomegaly - Rectal Rectal Exam: POSITIVE: Deferred - External Exam: POSITIVE: Deferred - Extremities Extremities Exam: POSITIVE: Normal Inspection - Back Back Exam: POSITIVE: Normal Inspection - Neurological Neurological Exam: POSITIVE: Alert, Oriented x 3, CN II-XII Intact, No Facial Droop, Speech Intact / Clear, Moves All Extremities Equally - Psychiatric Psychiatric Exam: POSITIVE: Normal Affect Patient Problems - Patient Problem List (1) Hypoglycemia Status: Acute Code(s): E16.2 - Hypoglycemia, unspecified Category: Medical (2) Troponin level elevated Status: Acute Code(s): R74.8 - Abnormal levels of other serum enzymes Category: Medical (3) Diabetic nephropathy Status: Chronic Comment: alb/cr >205.8 Category: Medical (4) 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 hemoglobin A1c 6.39%, on 01/08/17 Code(s): E11.21 - Type 2 diabetes mellitus with diabetic nephropathy Category: Medical (5) Hyperlipidemia Status: Chronic Category: Medical (6) Essential hypertension Status: Chronic Category: Medical
[2018-06-23 14:51] VITALS: BP 160/96
== END 2018-06-23 15:28 | disposition home or self-care (01) ==
LOC: MED/SURG 05:53 → ER 05:53 → MED/SURG 09:15
PROVIDERS: ADMIT Internal Medicine; ATTEND Internal Medicine

== ENCOUNTER 2018-11-21 12:34 | Inpatient (IN) ==
[2018-11-21 13:02] LABS: BASOPHILS # (AUTO) 0.02 10*3/UL; BASOPHILS % (AUTO) 0.1 % (0-1); EOSINOPHILS # (AUTO) 0.31 10*3/UL; EOSINOPHILS % (AUTO) 2.1 % (0-8); Hematocrit [HCT] 31.6 % (42.0-52.0); Hemoglobin [HGB] 10.3 g/dL (14.0-18.0); LYMPHOCYTES # (AUTO) 1.09 10*3/uL; MEAN CORPUSCULAR HGB CONC 32.6 g/dL (33-37); MEAN CORPUSCULAR VOLUME 94.3 FL (80-90); MEAN PLATELET VOLUME 9.4 FL (7.4-12.2); MONOCYTES # (AUTO) 1.03 10*3/UL (0.3-0.8); NEUTROPHILS # (AUTO) 12.23 10*3/UL; NEUTROPHILS % (AUTO) 83.2 % (50-80); PLATELET MORPHOLOGY COMMENT NORMAL MORPHOLOGY (NORM); RBC MORPHOLOGY COMMENT NORMAL MORPHOLOGY (NORM); RED BLOOD COUNT 3.35 10^6/uL (4.70-6.10); WBC MORPHOLOGY COMMENT NORMAL MORPHOLOGY (NORM)
[2018-11-21 13:13] LABS: BLOOD UREA NITROGEN 65 mg/dL (7-22); BUN/CREATININE RATIO 15.11 (6-20)
[2018-11-21 13:14] LABS: SERUM ALBUMIN 3.9 g/dL (3.5-4.8)
--- NOTE | 2018-11-21 13:47 | DI ---
XR NECK, SOFT TISSUE,11/21/2018 12:38 PM: Clinical History: Pills feel like they're stuck. Previous Exam: 07/17/2009 Findings: 2 lateral views of the cervical spine are obtained, and demonstrate a calcification within the prever tebral soft tissues overlying the tracheal L. colon which was seen on the prior exam. There is no rad iodense foreign body identified. The tracheal air column is within normal limits. There are degenerative changes of the cervical spine which are slightly worse than on the prior exam. Impression: No visible radiopaque foreign body to suggest lodged pills.
--- NOTE | 2018-11-21 15:10 | PDOC ---
General Adult HPI - General Chief Complaint: Integumentary Stated Complaint: cont problem with abcess Date Seen by Provider: 11/21/18 Time Seen by Provider: 12:40 Source: POSITIVE: Patient Exam Limitations: POSITIVE: No limitations Nurse's Notes Reviewed & Considered: Yes - History of Present Illness Initial Comment: The patient is a 73-year-old male who returns to the emergency department for recheck regarding an infection to the left buttock. He was seen here 2 days ago at which time he was found to have a large indurated area measuring proximally 5 or 6 cm in diameter to the left buttock. An attempted incision and drainage did not result in drainage of very much fluid at all. Cultures were obtained. Bedside ultrasound at that time did not show any evidence of fluid accumulation after the incision and drainage. He was placed on clindamycin and given hydrocodone as needed for pain and instructed to return here today for follow- up. Patient states that his pain is basically the same and has not improved significantly. He has not had any drainage from the wound. He does not think he has been running a fever at home however he has not felt well in general. He also states that this morning while swallowing his pills he felt like he got a pill stuck in his throat. He has had burning sensation and pain with swallowing since then. He has been able to swallow food including doughnuts and pretzels and has been drinking fluids okay since this occurred. The patient states that he checked his blood sugar this morning and it was good. Have you received a tetanus shot in the past 10 years?: Yes - Patient Home Medications Home Medications: Home Medications blood sugar diagnostic strips 1 strip MISCELLANEOUS BID #100 strip 08/11/17 blood-glucose meter 1 ea MISCELLANEOUS ONCE #1 ea 08/11/17 multivitamin tablet 1 tab PO QDAY tab 08/11/17 syringe with needle 3 mL 23 x 1" 1 unit .ROUTE .MEDSUPPLY 09/10/17 allopurinol 300 mg tablet 150 mg PO QDAY #45 tab 07/26/18 amlodipine 2.5 mg tablet 2.5 mg PO BID #60 tab 07/26/18 losartan 50 mg tablet 25 mg PO QDAY #30 tab 07/26/18 nifedipine ER 90 mg tablet,extended release 24 hr 90 mg PO BID #60 tab 07/26/18 torsemide 20 mg tablet 10 mg PO BID #30 tab 07/26/18 sitagliptin 50 mg tablet 50 mg PO QDAY #30 tab 08/18/18 metoprolol succinate ER 50 mg tablet,extended release 24 hr 50 mg PO QDAY 09/06/18 rosuvastatin 20 mg tablet 20 mg PO QDAY 09/06/18 Clindamycin HCl 300 mg PO TID #21 cap 11/19/18 Clopidogrel Bisulfate [Plavix] 37.5 mg PO .QOD 11/19/18 HYDROcodone/APAP 5/325 Tab [Comfort 5/325 Tab] 1 - 2 ea PO Q6H PRN #20 tab 11/19/18 - Patient Allergies Allergies/Adverse Reactions: Allergies Allergy/AdvReac Type Severity Reaction Status Date / Time latex [Latex] Allergy Severe RASH Verified 11/21/18 12:37 adhesive [Adhesive] Allergy Intermediate RASH Verified 11/21/18 12:37 Past Medical History - heen HEENT History: Cataracts, Hard of Hearing, Chipped or Loose Teeth Additional HEENT History: WEARS GLASSES Cardiovascular History: Hypertension, PVD, Hyperlipidemia Additional Cardiovasular History: Peripheral vascular disease. Patient denies having been diagnosed with any heart issues. 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 Patient wears 2L via [place] at [facility] only. Gastrointestinal History: Other (please comment) Additional Gastrointestinal History: patient had a surgical repair of hernia. Genitourinary History: Renal Disease, Kidney Stones Additional Genitourinary History: Only has one kidney Endocrine History: Type 2 Diabetes (oral) Additional Endocrine History: HgbA1c 8.6 on 07/14/12 Musculoskeletal History: Gout Prosthesis or Implant: No Additional Musculoskeletal History: patient uses a cane to ambulate with. Neurological History: CVA, Frequent Headaches, Other (please comment) Additional Neurological History: Diabetic peripheral neuropathy Blood Disorders: Denies History Additional Blood Disorders History: MONITORING PATIENT FOR BLOOD CLOTS. RECENTLY PLACED ON PLAVIX AND A HEART MONITOR Psychiatric History: Denies History History of Sexually Transmitted Diseases: No Cancer History: Denies History In Past Year Been Physically Harmed or Verbally Threatened: No History of MDRO: No Other Type of MDRO: Hx of MRSA History of Other Communicable Diseases: No Tobacco Use: Never Smoker Alcohol Use: None In the Past 12 Months, Have Used or Abuse Any Substance: None Previous Surgical History: Yes Type / Date of Surgery: LITHOTRIPSY x10, TONSILLECTOMY/ADENOIDECTOMY, CHOLECYSTECTOMY, CARPAL TUNNEL REPAIR/Bronchoscopy Anesthesia Reactions: No Malignant Hyperthermia: No Significant Family History: Cancer, Diabetes Past Medical History Reviewed: Reviewed - No Changes ROS - Limitations ROS Limitations: No Limitations Constitution: DENIES: Fever Cardiovascular: REPORTS: Denies Cardiac Symptoms Respiratory: REPORTS: Denies Resp Symptoms Neurological: REPORTS: Denies Neuro Symptoms Gastrointestinal: REPORTS: Denies GI Symptoms Musculoskeletal: REPORTS: Denies MS Symptoms Genitourinary: REPORTS: Denies Symptoms General Adult Exam - General Appearance General Appearance: POSITIVE: Alert, Cooperative, No Acute Distress - HEENT HEENT: POSITIVE: Head Inspection Nml, Eyes Inspection Nml, Ears Inspection Nml, Nose Inspection Nml, Pharynx Inspect. Nml - Respiratory Respiratory: POSITIVE: No Respiratory Distress, Breath Sounds Normal - Cardiovascular Cardiovascular: POSITIVE: Regular Rate & Rhythm, No Murmur Peripheral Pulses: Dorsalis-pedis (R): 2+, Dorsalis-pedis (L): 2+ - Abdomen Abdomen: Soft: (All Quadrants), Denies Tenderness: (All Quadrants), No Disten tion: (All Quadrants) - Rectal Rectal: POSITIVE: Other (Examination of the left buttock does reveal a firm area of induration approximately 4-5 cm in diameter, there is a small open ulceration in the center, no drainage of fluid at this time, no palpable fluctu ance. He has a small superficial decubitus ulcer distal to that as well.) - Skin Skin: POSITIVE: Normal Color, No Rash - Extremities Extremity: Normal ROM: (All Extremities), Normal Inspection: (All Extremities) - Neurological / Psychological Neurological: POSITIVE: Oriented X3, endoscope technician Normal As Tested, Motor Normal, Sensation Normal General Adult Progress - Results Reviewed by me Xrays/CTs/US Reviewed by me: Yes Discussed with Radiologist: Yes Radiology Findings: X-ray soft tissue neck shows no visible foreign body per radiologist. Lab Results Reviewed by Me: Yes Lab Results:: Laboratory Results 11/21/18 11/21/18 11/21/18 12:50 12:50 12:50 WBC 14.71 H RBC 3.35 L Hgb 10.3 L Hct 31.6 L MCV 94.3 H MCH 30.7 MCHC 32.6 L RDW Std Deviation 52.9 H RDW Coeff of Steffi 15.9 H Plt Count 293 MPV 9.4 Immature Gran % (Auto) 0.2 Neut % (Auto) 83.2 H Lymph % (Auto) 7.4 L Major % (Auto) 7.0 Eos % (Auto) 2.1 Baso % (Auto) 0.1 Immature Gran # (Auto) 0.03 Neut # (Auto) 12.23 Lymph # (Auto) 1.09 Major # (Auto) 1.03 H Eos # (Auto) 0.31 Baso # (Auto) 0.02 WBC Morphology Comment Normal morphology Plt Morphology Comment Normal morphology RBC Morph Comment Normal morphology Sodium 143 Potassium 4.8 Chloride 117 H Carbon Dioxide 11 L Anion Gap 15 BUN 65 H Creatinine 4.3 H Estimated GFR Research And Development Scientist BUN/Creatinine Ratio 15.11 Glucose 280 H Calculated Osmolality 324.0 H Lactic Acid 1.1 Calcium 8.6 L Magnesium 2.1 Total Bilirubin 0.2 L AST 29 ALT 35 Alkaline Phosphatase 106 C-Reactive Protein 8.2 H Total Protein 7.2 Albumin 3.9 Globulin 3.3 Albumin/Globulin Ratio 1.10 L CBC and BMP: 11/21/18 12:50 11/21/18 12:50 - Patient's Progress MDM / ED Course: An IV was established and blood cultures and lactate were obtained. His lactate is normal. His white blood cell count is elevated at 14,000. His CRP is 8.2. Creatinine is 4.3 which is baseline for him. The initial culture has shown positive for MRSA however. Sensitivities are not available at this time. At this point I think it would be best to treat the patient more aggressively with inpatient IV antibiotics. I did discuss the patient with Dr. Grady and he has agreed to admit the patient. The patient does have chronic renal failure. I did discuss antibiotic choice and dosing with the pharmacist. They recommended starting vancomycin 1.5 g IV. In addition ultrasound of the left buttock will be ordered to reevaluate for potential abscess which might require further incision and drainage. - Consult Counseled: POSITIVE: Patient, Family, RE: Lab Results, RE: Radiology Results, RE: DX, RE: Need for F/U Patient Care Time - Estimated PCT Patient Care Time (In Minutes): 30 Vital Signs - Recent Vital Signs Vital Signs: Vital Signs (Last 8 hours) Temp Pulse Resp BP Pulse Ox 11/21/18 12:38 97.1 F 86 18 118/65 94 - VS Reviewed Vital Signs Reviewed: Yes Discharge Clinical Impression: Abscess of buttock, left, Cellulitis, Dysphagia, Chronic renal failure Discharge Disposition: Admit to Inpatient Condition: Fair Patient Problem(s) Reviewed: Yes Follow Up With: DIMPLE VIRAMONTES [Primary Care Provider] - Date Decision to Admit to Inpatient: 11/21/18 Time Decision to Admit to Inpatient: 14:00
--- NOTE | 2018-11-21 15:53 | DI ---
[facility],11/21/2018 1:55 PM: Clinical History: Tenderness and left bile duct pain. Previous Exam: None at this facility. Findings: Multiple grayscale and color Doppler sonographic images are obtained through the area in question, an d demonstrate edematous tissues with hyperemia. There is no fluid collection identified. Impression: Edematous tissue and skin thickening is most consistent with left buttock cellulitis. Correlate clini maria antonia.
--- NOTE | 2018-11-21 15:59 | PDOC ---
HPI - History of Present Illness Date of Service: 11/21/18 Time of Service: 16:00 Chief Complaint: Pain in the left buttock area for 2 weeks, feeling of pills stuck in his throat of one day duration History of Present Illness: This is a 73 years old male with medical history significant for history of diabetes, hypertension, chronic kidney disease secondary to diabetic nephropathy, abnormal stress test with recent abnormal angiogram need to have CABG but he was told he need to be on dialysis first, who is been having pain in the left buttock of 2 weeks duration. He says it started as a pimple and then got more painful. He came into the ER 2 days ago was found to have a large indurated area they tried to I&D it however there was not much fluid and culture was sent. He was put on clindamycin and given hydrocodone as needed for pain and he was instructed to come today for follow-up. Patient did not show improvement. He denied fever but was saying he is not feeling well. This morning he said he swallowed his pills and felt like a pill got stuck in his throat. He reported having some pain with swallowing since then. He was evaluated in the ER and since he continued to have symptoms this time he was admitted. He did receive vancomycin in the ER. Past Medical History Medical History: 1. History of diabetes mellitus. 2. History of diabetic nephropathy. 3. History of hypoxemia suppose to be on oxygen at night. 4. History of diabetic neuropathy, suppose to have fistula soon. 5. History of hypertension. 6. History of hyperlipidemia. 7. History of stroke before he said he recovered from it completely. 8. History of nonfunctioning kidney according to him. 9. History of nephrolithiasis before. 10. History of abnormal stress test had an angiogram done last month told that he needs to have CABG but they need him be in dialysis first before CABG Surgical History: 1. History of hernia repair. 2. History of carpal tunnel surgery Family History: Reviewed an Not Pertinent Past Social History: Patient does not smoke, doesn't drink, no drugs, lives with his . Still works. Tobacco Use: Never Smoker In the Past 12 Months, Have Used or Abuse Any of the Following Substance: None Medication / Allergies Home Medications: Home Medications Medication Instructions Recorded Confirmed blood sugar diagnostic strips 1 strip MISCELLANEOUS BID #100 08/11/17 11/21/18 strip blood-glucose meter 1 ea MISCELLANEOUS ONCE #1 ea 08/11/17 11/21/18 multivitamin tablet 1 tab PO QDAY tab 08/11/17 11/21/18 RX: syringe with needle 3 mL 23 x 1 unit .ROUTE .MEDSUPPLY 09/10/17 11/21/18 1" nifedipine ER 90 mg 90 mg PO BID #60 tab 07/26/18 11/21/18 tablet,extended release 24 hr torsemide 20 mg tablet 10 mg PO BID #30 tab 07/26/18 11/21/18 sitagliptin 50 mg tablet 50 mg PO QDAY #30 tab 08/18/18 11/21/18 rosuvastatin 20 mg tablet 20 mg PO QDAY 09/06/18 11/21/18 HYDROcodone/APAP 5/325 Tab [[place] 1 - 2 ea PO Q6H PRN #20 tab 11/19/18 11/21/18 5/325 Tab] RX: Clindamycin HCl 300 mg PO TID #21 cap 11/19/18 11/21/18 Mv-Mn/Iron/Folic Acid/Herb 190 50,000 unit PO Q7D 11/22/18 11/22/18 [Vitamin D3 Complete Caplet] RX: Isosorbide Dinitrate 20 mg PO BID 11/22/18 11/22/18 RX: Losartan [Cozaar] 25 mg PO DAILY 11/22/18 11/22/18 RX: Metoprolol Succinate 100 mg PO DAILY 11/22/18 11/22/18 RX: Tramadol HCl 50 mg PO Q6H PRN 11/22/18 11/22/18 Allergies/Adverse Reactions: Allergies Allergy/AdvReac Type Severity Reaction Status Date / Time latex [Latex] Allergy Severe RASH Verified 11/21/18 15:59 adhesive [Adhesive] Allergy Intermediate RASH Verified 11/21/18 15:59 Review of Systems - Review of Systems All Systems: Reviewed & No Additional Complaints Except as Stated Exam - Vitals Vital Signs: Vital Signs Temperature 97.1 F Temperature Source Temporal Artery Scan Pulse Rate [Pulse Oximeter] 86 Respiratory Rate 17 Blood Pressure [Left Arm] 118/65 Pulse Ox 94 Oxygen Delivery Method Room Air Height 5 ft 7 in Weight 232 lb - General General Appearance: No Acute Distress, Cooperative - Head Head Exam: Normal Inspection - Eye Eye Exam: POSITIVE: Normal Appearance - ENT ENT Exam: POSITIVE: Normal Exam - Neck Neck Exam: Normal Inspection - Respiratory Respiratory Exam: POSITIVE: Clear to Auscultation - Bilaterally - Cardiovascular Cardiovascular Exam: POSITIVE: RRR - GI/Abdominal GI/Abdominal Exam: POSITIVE: Normal Bowel Sounds, Non Tender, Non Distended, Soft, No Organomegaly - Rectal Rectal Exam: POSITIVE: Deferred - Extremities Extremities Exam: POSITIVE: Normal Inspection - Back Back Exam: POSITIVE: Normal Inspection - Neurological Neurological Exam: POSITIVE: Alert, Oriented x 3, CN II-XII Intact, No Facial Droop, Speech Intact / Clear, Moves All Extremities Equally - Integumentary Additional Integumentary Exam Details: area of induration in the left buttock noted around 4x 4 cm. no discharge Results - Labs CBC and BMP: 11/22/18 04:25 11/22/18 04:25 - Imaging Status: Report Reviewed by Me (US buttock Edematous tissue and skin thickening is most consistent with left buttock cellulitis. Correlate clinically.) Assessment and Plan - Patient Problems (1) Cellulitis Current Visit: Yes Status: Acute Comment: The culture may be positive for MRSA will probably have identification more tomorrow. He did receive vancomycin will speak with pharmacy about checking level. Code(s): L03.90 - Cellulitis, unspecified (2) Dysphagia Current Visit: Yes Status: Acute Comment: I will speak with Dr. Langley in see his thoughts about scope. Code(s): R13.10 - Dysphagia, unspecified (3) Hyperlipidemia Current Visit: No Status: Chronic Comment: Same medications (4) Chronic kidney disease (CKD) Current Visit: Yes Status: Acute Comment: We'll continue monitoring his kidney function. Code(s): N18.9 - Chronic kidney disease, unspecified (5) Diabetes Current Visit: Yes Status: Acute Comment: Continue Januvia Code(s): E11.9 - Type 2 diabetes mellitus without complications (6) Hypertension Current Visit: No Status: Acute Onset Date: 07/23/11 Comment: continue same medications Code(s): I10 - Essential (primary) hypertension
[2018-11-21] MEDS ORDERED: LIDOCAINE W/ SODIUM BICARB 0.5 ML SYR SUBD PRN (16:28)
[2018-11-21] MEDS ORDERED: CALCIUM CARBONATE 500 MG (TUMS) CHEWABLE TABLET PO PRN (16:28)
[2018-11-21] MEDS ORDERED: ONDANSETRON 4 MG/2 ML VIAL IVP PRN (16:28)
[2018-11-21] MEDS ORDERED: DOCUSATE 100 MG CAPSULE PO PRN (16:28)
[2018-11-21] MEDS ORDERED: ACETAMINOPHEN 325 MG TABLET PO PRN (16:28)
--- NOTE | 2018-11-21 18:04 | CRNA.PROGR ---
Anesthesia Time - Procedure/Recovery Time Start Date: 11/21/18 End Date: 11/21/18 Anesthesia : Time In: 18:15 Anesthesia : Time Out: 18:35 Anesthesia : Total Time: 20 - Total Anesthesia Time Total Anesthesia Time (minutes): 20 - Other Weight: 105.233 kg Height: 5 ft 7 in Body Mass Index (BMI): 36.3 Physical Status: P3 Anesthesia Type: MAC
--- NOTE | 2018-11-21 18:04 | CRNA.PROGR ---
Post Anesthesia Phase II - Post Anesthesia Phase II Patient Stable and Discharged To: Med/Surg Care Assumed By Surgeon: Clay Langley MD Temperature: 98.5 F Respiratory Rate: 17 Pulse Ox: 93 Total Nancy Score at Discharge: 9 Post Anesthesia Discharge Criteria Met: Yes
--- NOTE | 2018-11-21 18:04 | MINORPROC ---
Outpatient History & Physical Chief Complaint: Dysphagia Present Illness: Patient states over the last days been having difficulty swallowing his pills. He states it feels like there is 1 stuck currently Past History: Please see Dr. Grady's notes in EMR History: Respiratory: WNL, Cardiovascular: WNL Physical Exam: Chest/Lungs: WNL, Heart: WNL Home Medications: Home Medications Medication Instructions Recorded Confirmed blood sugar diagnostic strips 1 strip MISCELLANEOUS BID #100 08/11/17 11/21/18 strip blood-glucose meter 1 ea MISCELLANEOUS ONCE #1 ea 08/11/17 11/21/18 multivitamin tablet 1 tab PO QDAY tab 08/11/17 11/21/18 syringe with needle 3 mL 23 x 1" 1 unit .ROUTE .MEDSUPPLY 09/10/17 11/21/18 allopurinol 300 mg tablet 150 mg PO QDAY #45 tab 07/26/18 11/21/18 losartan 50 mg tablet 25 mg PO QDAY #30 tab 07/26/18 11/21/18 nifedipine ER 90 mg 90 mg PO BID #60 tab 07/26/18 11/21/18 tablet,extended release 24 hr torsemide 20 mg tablet 10 mg PO BID #30 tab 07/26/18 11/21/18 sitagliptin 50 mg tablet 50 mg PO QDAY #30 tab 08/18/18 11/21/18 metoprolol succinate ER 50 mg 50 mg PO QDAY 09/06/18 11/21/18 tablet,extended release 24 hr rosuvastatin 20 mg tablet 20 mg PO QDAY 09/06/18 11/21/18 Clindamycin HCl 300 mg PO TID #21 cap 11/19/18 11/21/18 Clopidogrel Bisulfate [Plavix] 37.5 mg PO .QOD 11/19/18 11/21/18 HYDROcodone/APAP 5/325 Tab [[place] 1 - 2 ea PO Q6H PRN #20 tab 11/19/18 11/21/18 5/325 Tab] Allergies/Adverse Reactions: Allergies Allergy/AdvReac Type Severity Reaction Status Date / Time latex [Latex] Allergy Severe RASH Verified 11/21/18 15:59 adhesive [Adhesive] Allergy Intermediate RASH Verified 11/21/18 15:59 Impression / Plan: Dysphagia Would recommend the patient have an EGD with dilation. The risk and potential complications of the procedure were discussed with the patient.. They understood this. Also discussed alternatives diagnostic and treatment options. Will get the EGD with dilation set up at the first available date. CPT 24101 Transfusion: Transfusion Not Anticipated Anesthesia Plans: Sedation ASA Class: Class 3 : Severe Systemic Disease Under Control
[2018-11-21] MEDS ORDERED: PROPOFOL 10 MG/1 ML (200 MG/20 ML) VIAL IV ONE (18:07)
[2018-11-21] MEDS ORDERED: PANTOPRAZOLE 40 MG TABLET PO ONE (18:37)
--- NOTE | 2018-11-21 18:37 | GEN.OPNOTE ---
EGD Operative Note Surgery Date: 11/21/18 Preoperative Diagnosis: Dysphagia Postoperative Diagnosis: Esophageal ulcer. Prepyloric ulcer. Cystic mass of the larynx. Hiatal hernia Procedure: Esophagogastroduodenoscopy with biopsy Surgeon: Trenton Langley MD Anesthesia Provider: Lorena Merrill CRNA Anesthesia Type: MAC Indications: Patient's been having difficulty swallowing pills and he thinks one is stuck Findings: Esophagus: Olympus video EGD scope inserted into the posterior pharynx. Patient had this would the ill-defined what appeared to be a cystic lesion in the pharynx above the larynx. I did look of the vocal cords were concealment was normal. The EGD scope was not the best scope to look at this. Is able to slide the scope beyond this into the esophagus. His esophagus appeared be normal except at the GE junction where he had an old esophageal ulcer with oh white exudate covering it. GE Junction : 3840 cm from incisors Fundus : Scope retroflexed on itself revealing the fundus. He had a hiatal hernia otherwise no abnormal pathology Body : Body the stomach had punctate hemorrhagic lesions consistent with gastritis Prepyloric : Prepyloric area had small shallow ulcer Small Intestine : First and second portion of duodenum normal A lubricated flexible upper endoscope was inserted and passed through the esophagus and stomach into the duodenum. Additional Details: At this point do think the patient is being PPIs. He'll need ENT evaluation to further delineate this lesion that was in the pharynx Endoscopy Procedures - Endoscopy Procedures Primary Endoscopy Procedure: 59167 : EGD w/Biospy
[2018-11-21] MEDS ORDERED: Lactated Ringers 1,000 ML PRIMARY IV ONE (19:24)
[2018-11-21] MEDS ORDERED: HYDROcodone-APAP 5 MG -325 MG TABLET PO PRN (20:42)
[2018-11-21] MEDS ORDERED: AmLODIPine Tab 2.5 MG TABLET PO SCH (21:00)
[2018-11-21] MEDS: Ertapenem Inj 0.5 GM in Sodium Chloride 0.9% 100 ML IV SCH (23:26)
[2018-11-22 04:40] LABS: BASOPHILS # (AUTO) 0.03 10*3/UL; BASOPHILS % (AUTO) 0.2 % (0-1); EOSINOPHILS % (AUTO) 2.2 % (0-8); Hemoglobin [HGB] 9.3 g/dL (14.0-18.0); LYMPHOCYTES # (AUTO) 0.98 10*3/uL; MEAN CORPUSCULAR HGB CONC 32.1 g/dL (33-37); MEAN CORPUSCULAR VOLUME 93.9 FL (80-90); MEAN PLATELET VOLUME 9.4 FL (7.4-12.2); MONOCYTES # (AUTO) 1.23 10*3/UL (0.3-0.8); NEUTROPHILS # (AUTO) 11.17 10*3/UL; NEUTROPHILS % (AUTO) 81.4 % (50-80); RED BLOOD COUNT 3.09 10^6/uL (4.70-6.10)
[2018-11-22 04:42] LABS: PLATELET MORPHOLOGY COMMENT NORMAL MORPHOLOGY (NORM); RBC MORPHOLOGY COMMENT NORMAL MORPHOLOGY (NORM); WBC MORPHOLOGY COMMENT NORMAL MORPHOLOGY (NORM)
[2018-11-22 05:05] LABS: BLOOD UREA NITROGEN 59 mg/dL (7-22); BUN/CREATININE RATIO 14.04 (6-20)
[2018-11-22] MEDS: PANTOPRAZOLE 40 MG TABLET PO SCH (07:38)
[2018-11-22] MEDS: TORSEMIDE 10 MG PO SCH ×3 (07:39→20:54)
--- NOTE | 2018-11-22 07:58 | PDOC(PROG) ---
Date of Service: 11/22/18 Time of Service: 08:00 Interval History: Subjective Maybe a little bit better in terms of the pain in his buttock. Swallowing difficulty also seemed to be improved. Objective : Data - Labs CBC and BMP: 11/22/18 04:25 11/22/18 04:25 Objective : Exam - General General Appearance: No Acute Distress, Cooperative - Head Head Exam: Normal Inspection - Eye Eye Exam: Normal Appearance - ENT ENT Exam: Normal Exam - Neck Neck Exam: Normal Inspection - Respiratory Respiratory Exam: Clear to Auscultation - Bilaterally - Cardiovascular Cardiovascular Exam: RRR - GI/Abdominal GI/Abdominal Exam: Normal Bowel Sounds, Non Tender, Non Distended, Soft, No Organomegaly - Rectal Rectal Exam: Deferred - External Exam: Deferred - Extremities Extremities Exam: Normal Inspection - Neurological Neurological Exam: Alert, Oriented x 3, CN II-XII Intact, No Facial Droop, Speech Intact / Clear - Psychiatric Psychiatric Exam: Normal Affect - Integumentary Additional Integumentary Exam Details: There is still redness in the left buttock area the area is still indurated somewhat tender. Assessment and Plan - Patient Problems (1) Cellulitis Current Visit: Yes Status: Acute Comment: Continue vancomycin, I did give him Invanz yesterday because the area is close to the rectum. I thought will cover gram negatives in addition to anaerobic organism Code(s): L03.90 - Cellulitis, unspecified (2) Dysphagia Current Visit: Yes Status: Acute Comment: This seemed to be improved continue Protonix. The EGD did show esophageal ulcer and prepyloric ulcer. There is also a cystic lesion in the pharynx above the larynx and I spoke with Dr. Rueda if the patient is discharged tomorrow he said he'll see him in the office if he still here he will see him on the floor. Code(s): R13.10 - Dysphagia, unspecified (3) Hyperlipidemia Current Visit: No Status: Chronic Comment: Same medication (4) Chronic kidney disease (CKD) Current Visit: Yes Status: Acute Comment: continue monitoring his kidney function Code(s): N18.9 - Chronic kidney disease, unspecified (5) Diabetes Current Visit: Yes Status: Acute Comment: Same med Code(s): E11.9 - Type 2 diabetes mellitus without complications (6) Hypertension Current Visit: No Status: Acute Onset Date: 07/23/11 Comment: Same medication Code(s): I10 - Essential (primary) hypertension
[2018-11-22] MEDS ORDERED: CLOPIDOGREL 75 MG TABLET PO SCH (09:00)
[2018-11-22] MEDS: NIFEdipine 30 MG ER 24H TABLET PO SCH ×2 (09:22→20:22)
[2018-11-22] MEDS: ALLOPURINOL 300 MG TABLET PO SCH (09:23)
[2018-11-22] MEDS: sitaGLIPtin Tab 100 MG TAB PO SCH (09:23)
[2018-11-22] MEDS: METOPROLOL SUCCINATE 50 MG SR 24H TABLET PO SCH (09:24)
[2018-11-22] MEDS: LOSARTAN 25 MG TABLET PO SCH (09:25)
[2018-11-22] MEDS ORDERED: LIDOCAINE W/ SODIUM BICARB 0.5 ML SYR SUBD PRN (13:31)
--- NOTE | 2018-11-22 13:31 | PDOC(PROG) ---
Date of Service: 11/22/18 Time of Service: 13:30 Interval History: Patient has a abscess of his left buttocks. Objective : Data - Labs CBC and BMP: 11/22/18 04:25 11/22/18 04:25 - Vital Signs Vital Signs and I&O: Vital Signs - Last Taken Temperature 99.3 F 11/22/18 11:04 Pulse Rate 95 11/22/18 11:04 Respiratory Rate 16 11/22/18 11:04 Blood Pressure 138/74 11/22/18 11:04 Pulse Ox 92 11/22/18 11:04 Intake and Output (24hr x 4 totals) 11/20/18 11/21/18 11/22/18 11/23/18 05:59 05:59 05:59 05:59 Intake Total 1100 / 1100 960 / 960 Output Total 1325 / 1325 425 / 425 Balance -225 / -225 535 / 535 Objective : Exam - General General Appearance: No Acute Distress Additional General Exam Details: Patient has proximal 4 cm abscess of the left buttocks that is not draining. He'll need to be I&D. The patient did eat so we'll have to do the surgery tomorrow morning at 7 AM
[2018-11-22] MEDS ORDERED: Nasal Sanitizer POPSWAB ampule 3 AMP (Nozin) PREOP DOSE ENOS SCH (13:45)
[2018-11-22] MEDS ORDERED: Rosuvastatin Tab 20 MG TAB PO SCH (21:00)
[2018-11-22] MEDS: Lactated Ringers 1,000 ML PRIMARY IV SCH ×2 (23:20→23:56)
[2018-11-22] MEDS: Ertapenem Inj 0.5 GM in Sodium Chloride 0.9% 100 ML IV SCH (23:20)
[2018-11-23 05:23] LABS: BASOPHILS # (AUTO) 0.03 10*3/UL; BASOPHILS % (AUTO) 0.2 % (0-1); EOSINOPHILS # (AUTO) 0.39 10*3/UL; EOSINOPHILS % (AUTO) 2.9 % (0-8); Hematocrit [HCT] 31.3 % (42.0-52.0); Hemoglobin [HGB] 10.2 g/dL (14.0-18.0); LYMPHOCYTES # (AUTO) 0.99 10*3/uL; MEAN CORPUSCULAR HGB CONC 32.6 g/dL (33-37); MEAN CORPUSCULAR VOLUME 92.9 FL (80-90); MEAN PLATELET VOLUME 9.6 FL (7.4-12.2); MONOCYTES % (AUTO) 10.4 % (5-15); NEUTROPHILS # (AUTO) 10.67 10*3/UL; NEUTROPHILS % (AUTO) 79.1 % (50-80); RED BLOOD COUNT 3.37 10^6/uL (4.70-6.10)
[2018-11-23 05:27] LABS: PLATELET MORPHOLOGY COMMENT NORMAL MORPHOLOGY (NORM); RBC MORPHOLOGY COMMENT NORMAL MORPHOLOGY (NORM); WBC MORPHOLOGY COMMENT NORMAL MORPHOLOGY (NORM)
[2018-11-23 05:37] LABS: BLOOD UREA NITROGEN 57 mg/dL (7-22); BUN/CREATININE RATIO 14.25 (6-20)
[2018-11-23] MEDS ORDERED: fentaNYL Inj 250 MCG/5 ML VIAL ONE (05:57)
[2018-11-23] MEDS ORDERED: MIDAZOLAM 5 MG/1 ML ONE (05:57)
[2018-11-23] MEDS ORDERED: REMIFENTANIL 1 MG/1 ML IV ONE (05:57)
[2018-11-23] MEDS ORDERED: PROPOFOL 10 MG/1 ML (200 MG/20 ML) VIAL IV ONE (06:02)
[2018-11-23] MEDS ORDERED: LIDOCAINE MPF 2% - 5 ML (20 MG/1 ML) ONE (06:02)
[2018-11-23] MEDS ORDERED: KETOROLAC 30 MG/1 ML VIAL ONE (06:02)
[2018-11-23] MEDS ORDERED: DEXAMETHASONE PF 10 MG/1 ML VIAL ONE (06:02)
[2018-11-23] MEDS ORDERED: Sodium Chloride 0.9% vial 20 ML ONE (06:02)
[2018-11-23] MEDS ORDERED: FAMOTIDINE 20 MG/2 ML VIAL IVP ONE (06:03)
[2018-11-23] MEDS ORDERED: SUCCINYLCHOLINE CHLORIDE 20 MG/1 ML - 10 ML ONE (06:03)
[2018-11-23] MEDS ORDERED: ROCURONIUM 10 MG/1 ML - 5 ML VIAL IVP ONE (06:30)
[2018-11-23] MEDS ORDERED: LIDOCAINE HCL 1%/EPI 1:100,000 - 20 ML VIAL ONE (06:45)
[2018-11-23] MEDS ORDERED: OXYMETAZOLINE 0.05% 15 ML NASAL SPRAY ONE ×2 (06:46→06:47)
[2018-11-23] MEDS ORDERED: SUGAMMADEX SODIUM 200 MG/2 ML VIAL IV ONE (07:45)
[2018-11-23] MEDS ORDERED: Lactated Ringers 1,000 ML PRIMARY IV ONE ×2 (07:45→07:46)
--- NOTE | 2018-11-23 07:46 | GEN.OPNOTE ---
Operative Note Surgery Date: 11/23/18 Preoperative Diagnosis: Abscess of the left buttocks Postoperative Diagnosis: Abscess of left buttocks Procedure: I&D of an abscess; simple Surgeon: Trenton Langley MD Anesthesia Provider: Mercedes Yee CRNA Anesthesia Type: General Indications: This 73-year-old gentleman who has an abscess of the left buttocks.. He was originally I indeed in the emergency department. It has not done any better. Patient's been brought in and placed on IV antibiotics. Is also on endoscopy is found to have a cystic mass in the supraglottic area therefore patient was having a direct laryngoscopy by Dr. Rueda. Operative Summary: Patient was repositioned after Dr. Ramirez finished with his procedure. Prepped draped sterile fashion. I used electrocautery to extend the previous incision. There is an additional abscess cavity pocket that was identified opened up. Patient is is packed with Multidex and gauze. Procedure Codes - Surgical Procedures Primary Surgical Procedure: 31891 : I&D, Simple Abscess
[2018-11-23] MEDS ORDERED: MORPHINE SULFATE 2 MG/1 ML IVP PRN (08:03)
[2018-11-23] MEDS ORDERED: Acetaminophen 1000mg Inj 1,000 MG/100 ML VIAL IV ONE (08:03)
[2018-11-23] MEDS ORDERED: fentaNYL Inj 100 MCG/2 ML VIAL IVP PRN (08:03)
[2018-11-23] MEDS ORDERED: LIDOCAINE W/ SODIUM BICARB 0.5 ML SYR SUBD PRN ×2 (08:03→10:35)
[2018-11-23] MEDS ORDERED: IPRATROPIUM/ALBUTEROL SULFATE 3 ML NEB NEB ONE (08:20)
--- NOTE | 2018-11-23 08:48 | CRNA.PROGR ---
Anesthesia Time - Procedure/Recovery Time Start Date: 11/23/18 Anesthesia : Time In: 06:52 Anesthesia : Time Out: 08:01 - Other Weight: 105.233 kg Height: 5 ft 7 in Body Mass Index (BMI): 36.3 Physical Status: P4 Anesthesia Type: General Anesthesia : ET (In Recovery pt now in Flutter, Ortho Assistant consulted requests no Albuterol. Is anticipating pt to floor [address])
[2018-11-23] MEDS ORDERED: FUROSEMIDE 10 MG/1 ML - 4 ML ONE (08:55)
[2018-11-23] MEDS ORDERED: FUROSEMIDE 10 MG/1 ML - 4 ML IVP ONE (09:01)
--- NOTE | 2018-11-23 09:13 | DI ---
XR CXR 1VW,11/23/2018 8:53 AM: Clinical History: Shortness of breath and chest pain Previous Exam: None at this facility. Findings: A single frontal radiograph of the chest is obtained, and demonstrates airspace disease within the ri [facility] lung base causing some silhouetting of the right hemidiaphragm and right heart border. Overlying EKG leads are seen. Skeletal structures are unremarkable. Impression: Airspace disease within the right lower lobe worrisome for pneumonia.
--- NOTE | 2018-11-23 09:27 | CRNA.PROGR ---
Anesthesia Recovery Phase I - Post Anesthesia Evaluation Patient's Condition on Arrival in Phase I: Fair Pain Level: 7
[2018-11-23] MEDS ORDERED: LIDOCAINE W/ SODIUM BICARB 0.5 ML SYR ONE (09:30)
--- NOTE | 2018-11-23 09:30 | CRNA.PROGR ---
Anesthesia Note - Progress Notes Anesthesia Progress Note: Pt in Flutter in Pacu, appears to have a mucous plug, coughing, HR 122, EKG shows Flutter. Hospitalist notified, requests no breathing treatment, c-xry and IV Lasix. Pt responds to therapy, 200 UO, rate in the 90's. Secondary IV expertly placed by Na LEMONS. Liyah, [facility] [id number]
--- NOTE | 2018-11-23 09:31 | EKG ---
[address] [place] [address] Measurements Intervals Slemp Rate: 117 P: OR: 0 QRS: -76 QRSD: 163 T: 32 QT: 399 QTc: 468 Interpretive Statements ATRIAL FLUTTER/TACHYCARDIA WITH RAPID VENTRICULAR RESPONSE RIGHT BUNDLE BRANCH BLOCK [120+ ms QRS DURATION, UPRIGHT V1, 40+ ms S IN I/aVL/V4/V5/V6] LEFT ANTERIOR FASCICULAR BLOCK [QRS AXIS <= -45, QR IN I, RS IN II] ANTEROSEPTAL MYOCARDIAL INFARCTION [40+ ms Q WAVE IN V1-V4], OF INDETERMINATE AGE INTERPRETATION BASED ON A DEFAULT AGE OF 40 YEARS Compared to ECG 06/21/2018 06:48:10 Sinus rhythm no longer present First degree AV block no longer present Myocardial infarct finding still present Electronically Signed On 11-23-18 13:02:52 MDT by Laci Matthews MD [email or web address]
--- NOTE | 2018-11-23 10:34 | PDOC(PROG) ---
Date of Service: 11/23/18 Time of Service: 10:30 Interval History: Subjective Patient had incision and drainage of the abscess in the buttock. Also had the cyst drained by Dr. Rueda my understanding. After the procedure however he was in narrow complex tachycardia and he was complaining from shortness of breath and pain in the chest and was coughing. I came in to see him he had crackles in both lungs and he had the with the cough some pinkish coloration to it I gave him Lasix and did a chest x-ray. He did to have a good response to the Lasix and the rhythm slowed down and appeared to be sinus rhythm and he feels better now. We moved him to the ICU for monitoring. Objective : Data - Labs CBC and BMP: 11/23/18 04:55 11/23/18 04:55 Objective : Exam - General General Appearance: No Acute Distress - Head Head Exam: Normal Inspection - Eye Eye Exam: Normal Appearance - Respiratory Additional Respiratory Exam Details: Crackles bilaterally worse on the right. - Cardiovascular Cardiovascular Exam: RRR - GI/Abdominal GI/Abdominal Exam: Normal Bowel Sounds, Non Tender, Non Distended, Soft - Rectal Additional Rectal Exam Details: Dressing applied to the left buttock. - External Exam: Deferred - Extremities Extremities Exam: Normal Inspection - Back Back Exam: Normal Inspection - Neurological Neurological Exam: Alert, Oriented x 3, CN II-XII Intact, No Facial Droop, Speech Intact / Clear - Psychiatric Psychiatric Exam: Normal Affect Assessment and Plan - Patient Problems (1) Cellulitis Current Visit: Yes Status: Acute Comment: Status post I&D of the abscess. I think we can switch him to by mouth antibiotics to give him less fluid. Code(s): L03.90 - Cellulitis, unspecified (2) Dysphagia Current Visit: Yes Status: Acute Comment: He has both the ulcers in the esophagus and prepyloric area addition there is a cyst in the pharyngeal area that was drained. Code(s): R13.10 - Dysphagia, unspecified (3) Hyperlipidemia Current Visit: No Status: Chronic Comment: Same medication (4) Chronic kidney disease (CKD) Current Visit: Yes Status: Acute Comment: Continue monitoring his kidney function. Code(s): N18.9 - Chronic kidney disease, unspecified (5) Diabetes Current Visit: Yes Status: Acute Comment: Same med Code(s): E11.9 - Type 2 diabetes mellitus without complications (6) Hypertension Current Visit: No Status: Acute Onset Date: 07/23/11 Comment: Same med Code(s): I10 - Essential (primary) hypertension (7) Shortness of breath Current Visit: Yes Status: Acute Comment: I think shortness of breath due to the volume overload he did receive fluids down in the OR. I think we'll continue with IV Lasix. Repeat his chest x-ray tomorrow. Although the read said that there is pneumonia but clinically everything started today after the procedure and he showed good response to Lasix. So clinically pneumonia is unlikely. Will check his troponin. Code(s): R06.02 - Shortness of breath
[2018-11-23] MEDS ORDERED: ACETAMINOPHEN 325 MG TABLET PO PRN (10:35)
[2018-11-23] MEDS ORDERED: DOCUSATE 100 MG CAPSULE PO PRN (10:35)
[2018-11-23] MEDS ORDERED: HYDROcodone-APAP 5 MG -325 MG TABLET PO PRN (10:35)
[2018-11-23] MEDS ORDERED: ONDANSETRON 4 MG/2 ML VIAL IVP PRN (10:35)
[2018-11-23] MEDS ORDERED: CALCIUM CARBONATE 500 MG (TUMS) CHEWABLE TABLET PO PRN (10:35)
[2018-11-23] MEDS: Lactated Ringers 1,000 ML PRIMARY IV SCH (10:46)
[2018-11-23] MEDS: LOSARTAN 25 MG TABLET PO SCH (10:55)
[2018-11-23] MEDS: TORSEMIDE 10 MG PO SCH (10:55)
[2018-11-23] MEDS: PANTOPRAZOLE 40 MG TABLET PO SCH (10:55)
[2018-11-23] MEDS: METOPROLOL SUCCINATE 50 MG SR 24H TABLET PO SCH (10:56)
[2018-11-23] MEDS: ALLOPURINOL 300 MG TABLET PO SCH (10:56)
[2018-11-23] MEDS: sitaGLIPtin Tab 100 MG TAB PO SCH (10:56)
[2018-11-23] MEDS: NIFEdipine 30 MG ER 24H TABLET PO SCH ×2 (10:56→20:10)
[2018-11-23] MEDS: FUROSEMIDE 10 MG/1 ML - 4 ML IVP SCH (12:58)
[2018-11-23] MEDS: DOXYCYCLINE HYCLATE 100 MG CAPSULE PO SCH (20:10)
[2018-11-23] MEDS ORDERED: Insulin Lispro Flexpen 300 UNIT/3 ML INSULN.PEN SUBCUT ONE (20:43)
[2018-11-23] MEDS ORDERED: sitaGLIPtin Tab 100 MG TAB PO SCH (20:45)
[2018-11-23] MEDS ORDERED: Rosuvastatin Tab 20 MG TAB PO SCH (21:00)
[2018-11-24 05:24] LABS: BASOPHILS # (AUTO) 0.01 10*3/UL; BASOPHILS % (AUTO) 0.1 % (0-1); EOSINOPHILS # (AUTO) 0.01 10*3/UL; EOSINOPHILS % (AUTO) 0.1 % (0-8); Hematocrit [HCT] 31.7 % (42.0-52.0); Hemoglobin [HGB] 10.4 g/dL (14.0-18.0); LYMPHOCYTES # (AUTO) 0.72 10*3/uL; MEAN CORPUSCULAR HGB CONC 32.8 g/dL (33-37); MEAN CORPUSCULAR VOLUME 91.9 FL (80-90); MONOCYTES # (AUTO) 1.26 10*3/UL (0.3-0.8); MONOCYTES % (AUTO) 8.5 % (5-15); NEUTROPHILS # (AUTO) 12.79 10*3/UL; NEUTROPHILS % (AUTO) 86.3 % (50-80); RED BLOOD COUNT 3.45 10^6/uL (4.70-6.10)
[2018-11-24 05:32] LABS: PLATELET MORPHOLOGY COMMENT NORMAL MORPHOLOGY (NORM); RBC MORPHOLOGY COMMENT NORMAL MORPHOLOGY (NORM); WBC MORPHOLOGY COMMENT NORMAL MORPHOLOGY (NORM)
[2018-11-24 05:37] LABS: BLOOD UREA NITROGEN 71 mg/dL (7-22); BUN/CREATININE RATIO 17.31 (6-20)
[2018-11-24] MEDS ORDERED: PANTOPRAZOLE 40 MG TABLET PO SCH (07:00)
[2018-11-24] MEDS: FUROSEMIDE 10 MG/1 ML - 4 ML IVP SCH (07:05)
[2018-11-24] MEDS: NIFEdipine 30 MG ER 24H TABLET PO SCH (08:56)
[2018-11-24] MEDS: DOXYCYCLINE HYCLATE 100 MG CAPSULE PO SCH (08:57)
[2018-11-24] MEDS ORDERED: ALLOPURINOL 300 MG TABLET PO SCH (09:00)
[2018-11-24] MEDS ORDERED: LOSARTAN 25 MG TABLET PO SCH (09:00)
[2018-11-24] MEDS ORDERED: METOPROLOL SUCCINATE 50 MG SR 24H TABLET PO SCH (09:00)
[2018-11-24] MEDS ORDERED: sitaGLIPtin Tab 100 MG TAB PO SCH (09:00)
[2018-11-24] MEDS ORDERED: CLOPIDOGREL 75 MG TABLET PO SCH (09:00)
--- NOTE | 2018-11-24 12:09 | DI ---
XR CXR 1VW,11/24/2018 7:00 AM: Clinical History: Shortness of breath Previous Exam: 11/23/18 Findings: A single frontal radiograph of the chest is obtained, and demonstrate airspace disease within the rig ht lung base. This has improved since the prior exam. There is silhouetting of the right heart border has improved. Overlying EKG leads are seen. The cardiomediastinum is unremarkable. There is some mild thickening of the minor fissure. Impression: 1. Airspace disease within the right lung base which has improved since the prior exam. Given this ra pid improvement in the thickening of the minor fissure. This may represent improving edema or atelect asis.
--- NOTE | 2018-11-24 12:17 | DCSUMMARY ---
Hospitalization Summary Admit Date: 11/21/2018 Discharge Date: 11/24/18 Hospital Course: Discharge diagnoses 1. Cellulitis and abscess of the left buttock status post I&D, growth showed MRSA 2. Esophageal ulcer 3. Prepyloric ulcer 4. 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 Episode of shortness of breath post surgery resolved after diuretic, looks like secondary to volume overload 6. Baseline elevated troponin, patient has underlying two-vessel coronary artery disease waiting for CABG 7. 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 History of hypoxemia on oxygen at night 9. History of diabetic neuropathy 10. History of CVA recovered from it Hospital course This is a 73 years old male with medical history significant for history of diabetes, hypertension, chronic kidney disease secondary to diabetic nephropat hy, coronary artery disease with recent angiogram that showed two-vessel disease waiting for CABG need to be on dialysis before surgery, who presented to the hospital with history of pain in the left buttock that's been going on for about 2 weeks. It started as a pimple and then got more painful. He came into the ER 2 days prior to admission he was found to have a large indurated area they tried I&D however there was not much fluid and culture was sent. He was given clindamycin and hydrocodone as needed for pain was instructed to come back for reevaluation. Patient reports no improvement. Examination did show still area of induration and cellulitis so he was admitted. on The day of admission also he did report that he swallowed some of his pills and felt like a pill got stuck in his throat. He reported subjective problem with swallowing since then. He was admitted to the hospital. He did receive a dose of vancomycin. Did give him a dose also of ertapenem because of the area is close to the rectum. Dr. Brown was consulted and had an EGD done which showed esophageal ulcer and prepyloric ulcer we put him on PPI. In addition there was a cystic mass of the larynx noted. We did consult Dr. Rueda. Patient showed no response to antibiotics so I asked Dr. Pitts to have a look at him again and the on the he took him to surgery had an I&D with drainage of 2 mls of from the left buttock abscess. He did also have drainage of the cystic mass and proved to be benign based on my discussion with Dr. Langley. Postoperatively he did have shortness of breath and some chest pain and I came in to see him in the PACU he had crackles in his lungs did a chest x-ray to me looked like volume overload I gave him Lasix and he responded. There was a question of a narrow QRS complex tachycardia but that didn't last long. We transferred him after that to the ICU and gave him IV lasix again. I did repeat his troponin troponin went up to maximum 0.575. I did speak with his screen repairer crusher Dr. Edouard recommended if the troponin remained less than 1 then this is secondary to volume overload. He knows the patient and he said he is very susceptible to volume. He did respond to Lasix. On the day of discharge he was feeling better his breathing was better I did repeat his chest x-ray and that showed improvement and clinically it looked like a result of volume overload. The area of cellulitis seemed to be improved after the drainage. PT did change the dressing. The patient requested that his family to change the dressing. We gave him supplies enough over the weekend and to come back again on Wednesday to be re-seen by PT to re-evaluate the wound. Did discharge him on doxycycline. Discharge instruction Diet renal Activity as tolerated Medications Current Medication(s) Medication Instructions Recorded Confirmed Type blood sugar diagnostic strips 1 strip MISCELLANEOUS BID #100 08/11/17 11/21/18 History strip blood-glucose meter 1 ea MISCELLANEOUS ONCE #1 ea 08/11/17 11/21/18 History multivitamin tablet 1 tab PO QDAY tab 08/11/17 11/21/18 History syringe with needle 3 mL 23 x 1" 1 unit .ROUTE .MEDSUPPLY 09/10/17 11/21/18 History nifedipine ER 90 mg 90 mg PO BID #60 tab 07/26/18 11/21/18 Rx tablet,extended release 24 hr torsemide 20 mg tablet 10 mg PO BID #30 tab 07/26/18 11/21/18 Rx sitagliptin 50 mg tablet 50 mg PO QDAY #30 tab 08/18/18 11/21/18 Rx rosuvastatin 20 mg tablet 20 mg PO QDAY 09/06/18 11/21/18 History HYDROcodone/APAP 5/325 Tab [[place] 1 - 2 ea PO Q6H PRN #20 tab 11/19/18 11/21/18 Rx 5/325 Tab] Isosorbide Dinitrate 20 mg PO BID 11/22/18 11/22/18 History Losartan [Cozaar] 25 mg PO DAILY 11/22/18 11/22/18 History Metoprolol Succinate 100 mg PO DAILY 11/22/18 11/22/18 History Mv-Mn/Iron/Folic Acid/Herb 190 50,000 unit PO Q7D 11/22/18 11/22/18 History [Vitamin D3 Complete Caplet] Tramadol HCl 50 mg PO Q6H PRN 11/22/18 11/22/18 History Allopurinol [Zyloprim] 150 mg PO DAILY tab 11/24/18 Rx Clopidogrel [Plavix] 37.5 mg PO Q48H tab 11/24/18 Rx Doxycycline Hyclate [Vibramycin] 100 mg PO BID #10 cap 11/24/18 Rx Losartan [Cozaar] 25 mg PO DAILY tab 11/24/18 Rx Metoprolol Succinate [Toprol XL] 50 mg PO DAILY tab 11/24/18 Rx Pantoprazole Sodium [Protonix] 40 mg PO AC BK #30 tab 11/24/18 Rx Follow-up with PCP in 1-2 weeks, follow-up with wound care next Wednesday, follow- up with Dr. Langley in 2 weeks Condition at discharge was stable for discharge Exam - Vitals Vital Signs: Vital Signs Temperature 97.4 F Temperature Source Temporal Artery Scan Pulse Rate [Pulse Oximeter] 87 Pulse Rate 89 Respiratory Rate 21 Blood Pressure [Left Arm] 129/77 Blood Pressure 150/100 Pulse Ox 97 Oxygen Flow Rate 2 Oxygen Delivery Method Nasal Cannula Height 5 ft 7 in Weight 230 lb - General General Appearance: No Acute Distress, Cooperative - Head Head Exam: Normal Inspection - Eye Eye Exam: POSITIVE: Normal Appearance - ENT ENT Exam: POSITIVE: Normal Exam - Neck Neck Exam: Normal Inspection - Respiratory Respiratory Exam: POSITIVE: Clear to Auscultation - Bilaterally - Cardiovascular Cardiovascular Exam: POSITIVE: RRR - GI/Abdominal GI/Abdominal Exam: POSITIVE: Normal Bowel Sounds, Non Tender, Non Distended, Soft, No Organomegaly - Rectal Rectal Exam: POSITIVE: Deferred - External Exam: POSITIVE: Deferred - Extremities Extremities Exam: POSITIVE: Normal Inspection - Back Back Exam: POSITIVE: Normal Inspection - Neurological Neurological Exam: POSITIVE: Alert, Oriented x 3, CN II-XII Intact, No Facial Droop, Speech Intact / Clear - Psychiatric Psychiatric Exam: POSITIVE: Normal Affect - Integumentary Additional Integumentary Exam Details: cellulitis seemed to be improved. There is no drainage from the wound. Patient Problems - Patient Problem List (1) Cellulitis Status: Acute Code(s): L03.90 - Cellulitis, unspecified Category: Medical (2) Dysphagia Status: Acute Code(s): R13.10 - Dysphagia, unspecified Category: Medical (3) Hyperlipidemia Status: Chronic Category: Medical (4) Chronic kidney disease (CKD) Status: Acute Code(s): N18.9 - Chronic kidney disease, unspecified Category: Medical (5) Diabetes Status: Acute Code(s): E11.9 - Type 2 diabetes mellitus without complications Category: Medical (6) Hypertension Status: Acute Onset Date: 07/23/11 Code(s): I10 - Essential (primary) hypertension Category: Medical (7) Shortness of breath Status: Acute Code(s): R06.02 - Shortness of breath Category: Medical
[2018-11-24 12:19] VITALS: O2SAT 96
[2018-11-24 13:09] VITALS: BP 142/96; RESP 18; TEMP 97
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
== END 2018-11-24 13:28 | disposition home or self-care (01) | DRG 580 ==
LOC: ER 12:34 → MED/SURG 15:20 → OPS 11-23 06:36 → ICU 11-23 10:23
PROVIDERS: ADMIT Internal Medicine; ATTEND Internal Medicine